=== PATIENT | female | born 1955 | race Caucasian/White ===

== ENCOUNTER 2020-02-05 11:34 | Outpatient (CLI) | payer MEDICARE, SELFPAY ==
--- NOTE | ~2020-02-05 | XR_ITS ---
EXAMINATION: XR abdomen/kub 1V INDICATION: Left-sided calcium kidney stone TECHNIQUE: Supine views of the abdomen were obtained on 2 radiographs. COMPARISON: None FINDINGS: Enteric contrast from an unknown examination partially opacifies the large bowel and limits visualization of the kidneys. A 2.3 cm stone projects in the left kidney. There are changes of left hip arthroplasty. Advanced osteoarthritis is noted in the right hip. There is at least moderate lower lumbar spondylosis. IMPRESSION: 1. 2.3 cm stone projecting in the left kidney. Reviewed, dictated and finalized at location A.
== END 2020-02-05 11:35 | disposition home or self-care (01) ==
PROVIDERS: Visit Provider Urology
DX: N20.0 Calculus of kidney (principal)
CPT/HCPCS: 74018

== ENCOUNTER 2020-06-09 09:15 | Outpatient (CLI) | payer MEDICARE, SELFPAY ==
--- NOTE | ~2020-06-09 | XR_ITS ---
XR abdomen/kub 1V 06/09/2020 09:41 Indication: Renal stones Procedure: KUB Comparison: 02/05/2020 Findings: Bowel gas pattern is nonobstructive. There is a 2.5 x 1.7 cm left renal stone. Other coloni c fecal loading. There are pelvic phleboliths. There is a radiodensity in the right abdomen, consiste nt with bowel content. Moderate lumbar spondylosis with levoscoliosis. There is a left total hip arth roplasty. There is advanced osteoarthritis of the right hip Impression: 1: Large left renal stone measuring up to 2.5 cm. Reviewed, dictated and finalized at location A. ORTHOPAEDICS Impression: 1: Large left renal stone measuring up to 2.5 cm.
== END 2020-06-09 09:16 | disposition home or self-care (01) ==
LOC: ANHIMG 09:25
PROVIDERS: PCP Internal Medicine; Visit Provider Urology
DX: N20.0 Calculus of kidney (principal)
CPT/HCPCS: 74018

== ENCOUNTER 2020-09-14 11:29 | Outpatient (CLI) | payer MEDICARE, SELFPAY ==
--- NOTE | ~2020-09-14 | XR_ITS ---
XR abdomen/kub 1V DATE: 09/14/2020 11:50 INDICATION: Calcium kidney stone follow-up TECHNIQUE: AP projection, 2 views COMPARISON: 06/09/2020 KUB FINDINGS: Large left calcified stone overlying left renal pelvis on 06/09/2020 is no longer evident. No obvious urinary tract calcification is noted. Noncontrast CT abdomen pelvis examination would be mor e sensitive and accurate for detection of kidney stones. Abdominal aortic calcification. No evidence of bowel obstruction. The psoas shadows are intact. No visceromegaly is detected. Severe osteoarthritis of the right hip joint. Left total hip arthroplasty. Levoscoliosis and degenerative disc disease of the lumbar and upper sacral spine. Osteopenia. IMPRESSION: Resolution of previous large calcified left renal pelvic stone since 06/09/2020 Severe right hip osteoarthritic arthritis Status post left total hip arthroplasty Reviewed, dictated and finalized at Location A. Reviewed, dictated and finalized at location A. IMPRESSION: Resolution of previous large calcified left renal pelvic stone sinc e 06/09/2020 Severe right hip osteoarthritic arthritis Status post left total hip arthroplasty
== END 2020-09-14 11:30 | disposition home or self-care (01) ==
PROVIDERS: PCP Internal Medicine; Visit Provider Urology
DX: N20.0 Calculus of kidney (principal)
CPT/HCPCS: 74018

== ENCOUNTER 2021-02-01 10:27 | Outpatient (CLI) | payer MEDICARE, SELFPAY ==
--- NOTE | ~2021-02-01 | XR_ITS ---
EXAMINATION: XR abdomen/kub 1V INDICATION: History of kidney stones TECHNIQUE: Supine views of the abdomen were obtained on 2 radiographs. COMPARISON: 09/14/2020 FINDINGS: No urolithiasis is identified. There is lumbar levocurvature. The bowel gas pattern is norm al. Multiple phleboliths are noted in the pelvis. There are changes of left hip arthroplasty. Advance d right hip osteoarthritis is noted. The visualized lung bases are clear. There is calcified atherosc lerosis. IMPRESSION: 1. No urolithiasis identified. Reviewed, dictated and finalized at location A.
== END 2021-02-01 10:28 | disposition home or self-care (01) ==
LOC: ANHIMG 10:33
PROVIDERS: PCP Internal Medicine; Visit Provider Urology
DX: N20.0 Calculus of kidney (principal)
CPT/HCPCS: 74018

== ENCOUNTER → 2021-06-25 09:12 | Outpatient (CLI) | payer MEDICARE, SELFPAY ==
[2021-06-25 20:22] LABS: SARS-CoV-2 RNA PCR Negative
== END ==
PROVIDERS: PCP Internal Medicine; Visit Provider Internal Medicine
DX: J06.9 Acute upper respiratory infection, unspecified (principal); Z20.822 Contact with and (suspected) exposure to COVID-19
CPT/HCPCS: C9803; U0003; U0005

== ENCOUNTER 2022-01-24 09:54 | Outpatient (CLI) | payer MEDICARE, SELFPAY ==
--- NOTE | ~2022-01-24 | XR_ITS ---
EXAMINATION: XR abdomen/kub 1V INDICATION: Calcium kidney stone TECHNIQUE: Supine views of the abdomen were obtained on 2 radiographs. COMPARISON: 02/01/2021 FINDINGS: A 3 mm stone projects in the upper pole of the left kidney. No additional urolithiasis is i dentified. There are phleboliths of the pelvis. Changes of bilateral hip arthroplasty are noted. The visualized lung bases are clear. A moderate volume of colonic stool is present. IMPRESSION: 1. Left nephrolithiasis. Reviewed, dictated and finalized at location B. IMPRESSION: 1. Left nephrolithiasis.
== END 2022-01-24 09:55 | disposition home or self-care (01) ==
PROVIDERS: PCP Internal Medicine; Visit Provider Urology
DX: N20.0 Calculus of kidney (principal)
CPT/HCPCS: 74018

== ENCOUNTER 2022-01-27 00:29 | Day surgery (SDC) | payer MEDICARE, SELFPAY ==
[2022-01-11 15:03] VITALS: BMI 28.3
--- NOTE | 2022-01-26 16:22 | PM.HPGS ---
History of Present Illness History of Present Illness Consent: Risks, benefits, and alternatives have been discussed and questions answered. Patient agrees to proceed with procedure. Chief complaint: neoplasm screening Narrative: Tiara Heaton is a 66 year old female referred for colon cancer screening. Review of Systems Review of Systems: All systems reviewed & are unremarkable except as noted in HPI and below PMFSH Social History Social History Living arrangements: with family Spiritual care concerns: No Meds Home Medications and Allergies Home Medications Medication Instructions Recorded Confirmed Type guaifenesin 600 mg tablet, 600 mg PO DAILY 01/11/22 01/27/22 History extended release 12 hr (Mucinex) meloxicam 15 mg tablet 15 mg PO DAILY PRN Pain 01/11/22 01/27/22 History omeprazole 20 mg capsule,delayed 20 mg PO DAILY PRN Acid Reflux 01/11/22 01/27/22 History release simvastatin 40 mg tablet 40 mg PO DAILY 01/11/22 01/27/22 History Allergies Allergy/AdvReac Type Severity Reaction Status Date / Time Penicillins Allergy Severe rash/hives Verified 01/27/22 06:50 Sulfa (Sulfonamide Allergy Severe rash/hives Verified 01/27/22 06:50 Antibiotics) celecoxib Allergy Rash Verified 01/27/22 06:50 nitrofurantoin Allergy Nausea and Verified 01/27/22 06:50 [From Macrobid] Vomiting Exam Resp: Auscultation: clear to auscultation bilaterally Cardio: Rate: regular rate Rhythm: regular rhythm GI: GI Palp: Yes Soft to palpation and No Tenderness to palpation present (GI) Assessment and Plan Assessment and plan (1) Colon cancer screening: Code(s): Z12.11 - Encounter for screening for malignant neoplasm of colon Status: Acute Assessment and Plan: Colonoscopy with possible biopsy or polypectomy or cautery or injection of substances.
[2022-01-27 06:51] VITALS: BP 124/62; PULSE 60; RESP 17; TEMP 36.4; O2SAT 99; BMI 28.9
[2022-01-27] MEDS: LACTATED RINGERS 1,000 ML 150 ML IV CONT (07:04)
--- NOTE | 2022-01-27 07:30 | P.PNAN_ITS ---
Anes - Initial Pre Proc Eval Procedure: Operation Date: 01/27/22 08:00 Proposed Procedures p Screening Colonoscopy - Blake Peoples MD Date/Time: 01/27/22 07:30 Surgeon: Blake Peoples MD Pre Op Diagnosis: neoplasm screening Patient Data Age: 66 Gender: F Height: 1.63 m Weight: 76.5 kg Last Vital Signs Temp 97.6 F 01/27/22 06:51 Pulse 60 01/27/22 06:51 Resp 17 01/27/22 06:51 BP 124/62 01/27/22 06:51 Pulse Ox 99 01/27/22 06:51 O2 Del Method Room Air 01/27/22 06:51 Allergies Allergy/AdvReac Type Severity Reaction Status Date / Time Penicillins Allergy Severe rash/hives Verified 01/27/22 06:50 Sulfa (Sulfonamide Allergy Severe rash/hives Verified 01/27/22 06:50 Antibiotics) celecoxib Allergy Rash Verified 01/27/22 06:50 nitrofurantoin Allergy Nausea and Verified 01/27/22 06:50 [From Macrobid] Vomiting Home Medications Medication Instructions Recorded Confirmed Type guaifenesin 600 mg tablet, 600 mg PO DAILY 01/11/22 01/27/22 History extended release 12 hr (Mucinex) meloxicam 15 mg tablet 15 mg PO DAILY PRN Pain 01/11/22 01/27/22 History omeprazole 20 mg capsule,delayed 20 mg PO DAILY PRN Acid Reflux 01/11/22 01/27/22 History release simvastatin 40 mg tablet 40 mg PO DAILY 01/11/22 01/27/22 History Patient hx anesthesia problems: none Family hx anesthesia problems: none Results Review: All pre-operative results and documents have been reviewed as part of the pre- operative evaluation. [facility] Social History Social History Living arrangements: with family Spiritual care concerns: No Anes - Eval Final PreProcedure Day of Procedure 01/27/22 07:30 Patient weight: overweight Heart: irregular rhythm Lungs: clear to auscultation Airway: Mallampati scale class II Neurological: alert and oriented Last oral intake: >/= 8 hours ASA classification: III Emergent: no Anesthetic plan: proceed Anesthesia type and monitoring: general GIVS and standard monitoring Results Review: All pre-operative results and documents have been reviewed as part of the pre- operative evaluation. Informed Consent: The patient's anesthetic plan and its attendant risks and benefits were discussed with the patient/family/POA. Questions were solicited and answers provided to the satisfaction of the patient/family/POA.
[2022-01-27 08:11] VITALS: BP 92/53; PULSE 65; RESP 18; O2SAT 99
[2022-01-27 08:21] VITALS: BP 99/59; PULSE 60; RESP 20; O2SAT 100
--- NOTE | 2022-01-27 08:29 | SUR.PHASEII ---
0811: PER ELDA, MANAGER EDUCATIONAL PT RAN RIGHT BUNDLE BRANCH BLOCK THROUGHOUT CASE, PT CONTINUES TO RUN BUNDLE BRANCH BLOCK WITH NO CONCERNS. DR SARABIA AWARE. NO NEW ORDERS.
[2022-01-27 08:31] VITALS: BP 110/68; PULSE 55; RESP 18; O2SAT 99
== END 2022-01-27 08:44 | disposition home or self-care (01) ==
PROVIDERS: PCP Internal Medicine; Visit Provider Internal Medicine Gastroenterology
PROC: 0DJD8ZZ Inspection of Lower Intestinal Tract, Via Natural or Artificial Opening Endoscopic (ICD-10-PCS; CPT 45378; principal; 2022-01-27 08:00)
DX: Z12.11 Encounter for screening for malignant neoplasm of colon (principal); D12.2 Benign neoplasm of ascending colon; K64.8 Other hemorrhoids; K57.30 Diverticulosis of large intestine without perforation or abscess without bleeding
CPT/HCPCS: 45380; 88305; J2704; J3370; J7120

== ENCOUNTER 2022-06-08 11:29 | Outpatient (CLI) | payer MEDICARE, SELFPAY ==
--- NOTE | ~2022-06-08 | XR_ITS ---
XR abdomen/kub 1V 06/08/2022 11:49 Indication: Left renal stone Procedure: KUB Comparison: Comparison to multiple prior studies sequentially, with oldest reviewed study dated 11/2020. Findings: Stable or millimeter left renal stone. Bowel gas pattern nonobstructive with moderate colon ic fecal loading. There is severe lumbar spondylosis with levoscoliosis. There are bilateral hip arth roplasties. There are pelvic phleboliths. Impression: 1: Stable left nephrolithiasis. Reviewed, dictated and finalized at location A. OMER ACQUISITION SPECIALIST Impression: 1: Stable left nephrolithiasis.
== END 2022-06-08 11:30 | disposition home or self-care (01) ==
LOC: ANHIMG 11:34
PROVIDERS: PCP Internal Medicine; Visit Provider Urology
DX: N20.0 Calculus of kidney (principal)
CPT/HCPCS: 74018

== ENCOUNTER 2023-06-11 11:50 | Outpatient (CLI) | payer MEDICARE, SELFPAY ==
--- NOTE | ~2023-06-11 | XR_ITS ---
XR abdomen/kub 1V DATE: 06/11/2023 12:12 INDICATION: Left calcium kidney stone follow-up TECHNIQUE: 2 supine AP views of the abdomen and pelvis COMPARISON: 06/08/2022 KUB 01/24/2022 KUB 02/03/2020 CT abdomen pelvis FINDINGS: No significant change of approximately 4 mm lower pole nonobstructing left renal calculus s petty 06/08/2022. The psoas shadows are intact. No visceromegaly is evident. There is a prominent amount of fecal mater ial in the rectum and colon but no bowel obstruction. Calcification and tortuosity of the abdominal aorta. IMPRESSION: Stable approximately 4 mm lower pole left renal calcified calculus Reviewed, dictated and finalized at Location A. Reviewed, dictated and finalized at location B. [employer] ENG[employer]ER[employer]
== END 2023-06-11 11:51 | disposition home or self-care (01) ==
PROVIDERS: PCP Internal Medicine; Visit Provider Urology
DX: N20.0 Calculus of kidney (principal)
CPT/HCPCS: 74018

== ENCOUNTER 2024-07-18 11:31 | Outpatient (CLI) | payer MEDICARE, SELFPAY ==
--- NOTE | ~2024-07-18 | XR_ITS ---
Exam: Abdomen 1V HISTORY: NEPHROLITHIASIS, ANNUAL F/U COMPARISON: Examination was compared with multiple prior studies performed most recently on 06/11/2023 and dating back to 01/24/2022 TECHNIQUE: Supine images of the abdomen FINDINGS: Fecal stasis within the colon. No obstruction. There is no free air or deep sulci. Stable 4 mm calculus projecting over the lower pole of the left kidney, unchanged dating back to 01/24 Bilateral hip prostheses IMPRESSION: Stable 4 mm calculus projecting over the lower pole of the left kidney, as detailed above. Reviewed, dictated and finalized at location A. ROAD SIGNAL OPERATOR IMPRESSION: Stable 4 mm calculus projecting over the lower pole of the left kidney, as detmarybeth edmondson above.
--- OUTSIDE RECORDS SUMMARY | 2024-07-18 11:41 | XMS_ITS | Patient Health Record ---
Author Organization [facility] Address [address] [place] [address] Care Team Providers Care Scrap Cutter Name Role Phone Colin PIZARRO, Randi Primary Care Provider Un available FLORENCE PIZARRO, NIKI Unavailable REASON FOR REFERRAL No Information PLAN OF TREATMENT Pending Test Test Name Order Date CT ABDOMEN W CONTRAST 06/01/2020 Endoscopic Retrograde Cholangiopancreato graphy (ERCP) 06/11/2020 Endoscopic Retrograde Cholangiopancreato graphy (ERCP) 04/20/2020 Endoscopic Retrograde Cholangiopancreato graphy (ERCP) 09/03/2020 MRCP 08/13/2020 Insurance Providers Payer Name Payer Address Payer Phone Subscriber Number Group Number Insured Name Patient Relationship to Insured Coverage Start Date Coverage End Date Medicare-M O Medicare [address] [address] [place], [place] [id number] Tiara Heaton Self - patient is the insured [facility] Medicare Supplement [address] [facility] [place], [place] [id number] Tiara Heaton Self - patient is the insured
--- OUTSIDE RECORDS SUMMARY | 2024-07-18 11:41 | XMS_ITS | Clinical Summary ---
Author Organization [facility] Address [address] [place] [address] Phone Care Team Providers Care Education And Training Coordinator Name Role Phone Randi Shaw MD Primary Care Provider [phone] Allergies Active Allergy Reactions Criticality Noted Date Comments Celecoxib Rash High 02/13/2011 Nitrofurantoin nausea,Nausea And Vomiting,Vomiting High 08/10/2020 Penicillins Rash High 02/13/2011 1997 Sulfa Antibiotics Rash High 03/15/2011 Medications Medication Sig Dispensed Refills Start Date End Date Status simvastatin (ZOCOR) 40 MG tablet Take 40 mg by mouth 1 (one) time each day 04/04/2022 Active Probiotic Product (Align) capsule Take 4 mg by mouth every other day Active guaiFENesin (MUCINEX) 600 MG 12 hr tablet Take 600 mg by mouth once daily as needed Active omeprazole (PriLOSEC) [address] capsule Take 20 mg by mouth once daily as needed Active cholecalciferol (VITAMIN D-3) 25 MCG (1000 UT) capsule Take 1,000 Units by mouth 1 (one) time each day Active hydroCHLOROthiazide 12.5 MG tablet TAKE 1 TABLET(12.5 MG) BY MOUTH 1 TIME EACH DAY 90 tablet 3 04/15/2024 Active Encounters Date Type Department Care Team Description 06/30/2024 Orders Only [facility] [address] [place] [address] Zuleika Rankin MA Nephrolithiasis (Primary Dx) 05/09/2024 Orders Only [facility] [address] [place] [address] Jamie Armendariz MD Nephrolithiasis (Primary Dx) from Last 3 Months Immunizations Name Administration Dates Next Due Influenza Split High Dose Preservative Free IM 03/20/2017 Influenza TIV (IM) 04/13/2020,02/14/2019 Influenza, Injectable, Quadr ivalent, Preservative Free 02/13/2019 Influenza, Unspecified 03/23/2023,2021,03/16/2021,2019,04/24/2018 Moderna Sars-cov-2 Vaccination 08/25/2020 Pfizer Sars-cov-2 Vaccination 04/06/2022, 022,07/30/2020 Pneumococcal Conjugate 05/04/2019 Pneumococcal Conjugate 13-Valent 04/29/2018 Social History Tobacco Use Types Packs/Day Years Used Date Smoking Tobacco: Unknown Tobacco Cessation:Counseling Given: Not Answered Sex and Gender Information Value Date Recorded Sex Assigned at Not on file Gender Identity Not on file Sexual Orientation Not on file Last Filed Vital Signs Vital Sign Reading Time Taken Comments Blood Pressure 122/70 07/30/2023 2:07 PM CAMPAIGN SPECIALIST Pulse 56 07/30/2023 2:07 PM CAMPAIGN SPECIALIST Temperature - - Respiratory Rate - - Oxygen Saturation - - Inhaled Oxygen Concentration - - Weight 77.6 kg (171 lb) 07/30/2023 2:07 PM CAMPAIGN SPECIALIST Height 160 cm (5' 3 ) 07/30/2023 2:07 PM CAMPAIGN SPECIALIST Body Mass Index 30.29 07/30/2023 2:07 PM CAMPAIGN SPECIALIST Plan of Treatment Upcoming Encounters Date Type Department Care Team (Late st Contact Info) Description 08/12/2024 11:40 AM CDT Office Visit [facility] [address] [place] [address] Jamie Armendariz MD [address] [place] [address] Health Maintenance Due Date Last Done Comments Pneumococcal PPSV23/PCV13 65 + Years / High and Highest Risk (2 of 4 - PPSV23 or PCV20) 06/24/2018 04/29/2018 COVID-19 Vaccine (6 - 2023-2 5 season) 2024 04/06/2022, 10/10/2021, 08/25/2020, Additional history exists Influenza Vaccine (#1) 2024 3, 03/16/2022, 03/16/2021, Additional history exists Procedures Procedure Name Priority Date/Time Associated Diagnosis Comments LITHOLINK 24-HOUR URINE, [place] Routine 07/11/2024 6:00 AM CAMPAIGN SPECIALIST Nephrolithiasis from Last 3 Months Results * (ABNORMAL) Litholink 24-Hour Urine Panel (07/11/2024 6:00 AM CAMPAIGN SPECIALIST) CYSTINE, URINE, QUALITATIVE CANCELED [facility] 1 Comment: Test not performed. Previous test results on file. Result canceled by the ancillary. Volume, 24-Hour Urine 3,660 500 - 4,000 mL/24 hr [facility] 1 Calcium oxalate index, 24 hour Urine 1.99(L) 6.00 - 10.00 [facility] 1 Calcium, 24 hour Urine 191 <200 mg/24 hr [facility] 1 Oxalate, 24 hour Urine 22 20 - 40 mg/24 hr [facility] 1 Citrate, 24 hour Urine 904 >550 mg/24 hr [facility] 1 CALCIUM PHOSPHATE SATURATION 0.81 0.50 - 2.00 [facility] 1 pH of 24 hour Urine 6.959(H) 5.800 - 6.200 [facility] 1 Urate, 24 hour Urine 0.04 <1.00 [facility] 1 Uric Acid (Urate), 24 Hour Urine 534 <750 mg/24 hr [facility] 1 Sodium, 24 hour Urine 158(H) 50 - 150 mmol/24 hr [facility] 1 Potassium, 24 hour Urine 53 20 - 100 mmol/24 hr [facility] 1 Magnesium, 24 hour Urine 90 30 - 120 mg/24 hr [facility] 1 Phosphate, 24 hour Urine 586(L) 600 - 1,200 mg/24 hr [facility] 1 AMMONIUM, URINE 26 15 - 60 mmol/24 hr [facility] 1 Chloride, 24 hour Urine 154 70 - 250 mmol/24 hr [facility] 1 Sulfate, 24 hour Urine 21 20 - 80 meq/24 hr [facility] 1 Urea nitrogen, 24 hour Urine (UUN) 6.93 6.00 - 14.00 g/24 hr [facility] 1 PROTEIN CATABOLIC RATE 0.8 0.8 - 1.4 g/kg/24 hr [facility] 1 Creatinine, 24 hour Urine 1,115 Not Applic. mg/24 hr [facility] 1 CREATININE / KG BODY WEIGHT 14.9 8.7 - 20.3 mg/24 hr/kg [facility] 1 Calcium/Kg Body Weight 2.6 <4.0 mg/24 hr/kg [facility] 1 RATIO CALCIUM TO CREATININE UA 172 51 - 262 mg/g creat [facility] 1 COMMENT Note [facility] 1 PDF . [facility] 1 07/11/2024 6:00 AM CAMPAIGN SPECIALIST 07/15/2024 11:00 PM CAMPAIGN SPECIALIST Narrative [facility] - 07/17/2024 2:06 AM CAMPAIGN SPECIALIST Performed at: 01 - [facility] [address] [id number] Jewel Hole Cornerer: Bettie Lawler PhD, Phone: [phone] Jamie Armendariz MD LAB URINE ORDERABLES Performing Organization Address City/State/[facility] Co de Phone Number [facility] 1 from Last 3 Months Care Teams Education And Training Coordinator Relationship Specialty Start Date End Date Randi Shaw MD [facility] [place] [address] PCP - General Family Medicine 05/17/22
--- OUTSIDE RECORDS SUMMARY | 2024-07-18 11:41 | XMS_ITS | Encounter Summary ---
Author Organization [facility] Address [address] [place] [address] Care Team Providers Care Physician/Internist Name Role Phone Lyudmila Shaw MD Primary Care Provide r Yrn Bashir MD Unavailable [phone] Sherly De Jesus MD Unavailable [phone] Encounter Details Date Type Department Care Team (Late st Contact Info) Description 07/19/2020 Telephone [facility] - Interventional Radiology [address] [place] [address] Geena Hernadez RN Social History Tobacco Use Types Packs/Day Years Used Date Smoking Tobacco: Never Smokeless Tobacco: Never Alcohol Use Standard Drinks/Week Comments Not Currently 0 (1 standard drink = 0.6 oz pur e alcohol) Social Connection and Isolation Panel [NHANES] A nswer Date Recorded Frequency of Communication with Friends and Fami ly Not on file 11/12/2019 Frequency of Social Gatherings with Friends and Family Not on file 11/12/2019 Attends Latter Day Services Not on file 11/11 Active Member of Clubs or Organizations Not on f ile 11/12/2019 Attends Club or Organization Meetings Not on sana e 11/12/2019 Are you , , di vorced, , never , or living with a partner? 11/12/2019 Exercise Vital Sign Answer Date Recorde d On average, how many days pe r week do you engage in moderate to strenuous exercise (like a brisk walk)? 0 days 11/12/2019 On average, how many minutes do you engage in exercise at this level? 0 min 11/12/2019 Comments No Sex and Gender Information Value Date Recorded Sex Assigned at Not on file Legal Sex Female 3:46 AM HELP DESK INTERN Gender Identity Female 09/04/2020 8:26 AM CDT Sexual Orientation Not on file documented as of this encounter Plan of Treatment Not on file documented as of this encounter Visit Diagnoses Not on filedocumented in this encounter Care Teams Physician/Internist Relationship Specialty Start Date End Date Lyudmila Shaw MD [address] [facility] [address] [place] [address] PCP - General 06/17/18 Yrn Bashir MD [address] [facility] [address] [place] [address] Consulting Physician Gastroenterology 04/15/20 Sherly De Jesus MD [address] [facility] [address] [place] [address] Consulting Physician Urology 04/15/20 documented as of this encounter
--- OUTSIDE RECORDS SUMMARY | 2024-07-18 11:41 | XMS_ITS | Clinical Summary ---
Author Organization [facility] Address [address] [place] [address] Care Team Providers Care Doughmaker Name Role Phone Pancho Hatfield MD Unavailable [phone] Enedelia LAMBERT MD, Frank Unavailable [phone] Source Comments [facility],non-owned Affiliates and Associated Physician Practices is amultiple site organization consisting of ambulatory clinics and hospital sitesin [place], [place], [place] and [place]. This disclosure is being madepursuant to the Care Everywhere program and may not contain all information available regarding this patient. Last updated 18.[facility] Allergies Active Allergy Reactions Criticality Noted Date Comments Celecoxib Rash Medium 03/15/2011 Nitrofurantoin Nausea and/or Vomiting 1 Penicillins Rash Low 03/15/2011 Sulfa Drugs Rash Low 03/15/2011 Medications * Be aware that medications may not be up to date on this document. Alwaysverify current medications with the patient. Medication Sig Dispensed Refills Start Date End Date Status calcium-vitamin D (CALTRATE PLUS D) 600-200 MG-UNIT tablet Take 1 Tab by mouth 2 times daily. Active multivitamin daily (THERAGRAN) tablet Take 1 Tab by mouth daily with food. Active Probiotic Product (ALIGN PO) Take by mouth every 2 days Active clindamycin (CLEOCIN) 300 MG capsuleIndications: Status post total replacement of left hip Take 2 capsules by mouth once as needed (Dental Prophylaxis) 2 tablets one hour before dental work. 6 capsule 04/01/2019 Active Additional Information Patient not taking.Reported on 03/31/2021 simvastatin (ZOCOR) 40 MG tablet Take 40 mg by mouth at bedtime Active omeprazole (PRILOSEC) 20 MG capsule Take 20 mg by mouth once daily as needed Active guaiFENesin ER 12hr (MUCINEX) 600 MG tablet Take 600 mg by mouth once daily as needed for Cough Active docusate sodium (COLACE) 100 MG capsule Take 100 mg by mouth once daily as needed for Constipation Active HYDROcodone-acetami nophen (NORCO) 10-325 MG tablet Take 0.5 (one-half) tablet to 1 (one) tablet by mouth every 6 hours as needed for Pain 28 tablet 04/02/2021 Active meloxicam (MOBIC) 15 MG tablet TAKE 1 TABLET BY MOUTH EVERY DAY 21 tablet 05/16/2021 Active Active Problems Problem Noted Date Diagnosed Date Arthralgia of hip 02/11/2019 Knee joint replacement by other means 11/16/2011 DJD (degenerative joint disease) 10/26/2011 Immunizations Name Administration Dates Next Due INFLUENZA VACCINE, QUADR. (F LUZONE; FLULAVAL; FLUARIX; AFLURIA QUADRIVALENT; 6MO+), 0.5 ML (IIV4) 02/13/2019 Social History Tobacco Use Types Packs/Day Years Used Date Smoking Tobacco: Never Smokeless Tobacco: Never Alcohol Use Standard Drinks/Week Comments No 0 (1 standard drink = 0.6 oz pur e alcohol) Sex and Gender Information Value Date Recorded Sex Assigned at Female 06/13/2021 9:49 AM POWER PLANT ENGINEER Gender Identity Female 06/13/2021 9:49 AM POWER PLANT ENGINEER Sexual Orientation Not on file Last Filed Vital Signs Vital Sign Reading Time Taken Comments Blood Pressure 110/67 04/02/2021 11:[address] tx Pulse 53 04/02/2021 8:05 AM CDT Temperature 36.5 C (97.7 F) 04/02/2021 8:05 AM CDT Respiratory Rate 18 04/02/2021 8:05 AM CDT Oxygen Saturation 96% 04/02/2021 8:05 AM CDT Inhaled Oxygen Concentration - - Weight 73.9 kg (163 lb) 03/31/2021 7:41 AM CDT Height 162.6 cm (5' 4 ) 03/31/2021 7:41 AM CDT Body Mass Index 27.98 03/31/2021 7:41 AM CDT Plan of Treatment Health Maintenance Due Date Last Done Comments BONE DENSITY TESTING 1953 COLOGUARD (AGES 45-75) - COLON CA SCREENING 1953 COLON MONITORING 1953 COLONOSCOPY - COLON CA SCREENING 1953 CT COLONOGRAPHY - COLON CA SCREENING 1953 Colorectal Cancer Screening 1953 FIT - COLON CA SCREENING 1953 FLEX SIG - COLON CA SCREENING 1953 MAMMOGRAM 1953 MEDICARE AWV 12 MONTHS 1953 HEPATITIS C SCREENING 02/11/1971 DTAP/TDAP/TD VACCINES (1 - Tdap) 02/16/1972 PNEUMOCOCCAL VACCINE 50+ (1 of 1 - PCV) 2003 ZOSTER VACCINE (1 of 2) 2003 SCREENING FOR DIABETES 01/17/2022 9, 09/20/2011, 03/15/2011 COVID-19 VACCINE (3 - season) 2024 08/25/2020, 07/30/2020 INFLUENZA VACCINE (#1) 2024 , 02/14/2019, 02/13/2019, Additional history exists DEPRESSION SCREENING 06/04/2024 Respiratory Syncytial Virus (RSV) Vaccine Pt: or over 60 yrs (1 - 1-dose 75+ series) 02/16/2028 HEPATITIS B VACCINE Aged Out No longe r eligible based on patient's age to complete this topic HIB VACCINE Aged Out No longer eligi ble based on patient's age to complete this topic HPV VACCINE Aged Out No longer eligi ble based on patient's age to complete this topic MENINGOCOCCAL (Group B) VACCINE Aged Out No longer eligible based on patient's age to complete this topic MENINGOCOCCAL VACCINE Aged Out No cassidy alyson eligible based on patient's age to complete this topic Medical Devices Implanted Type Area Cook Italian Style Food Device Identifier Shelf Expiration Date Model / Serial / Lot Liner Actb Mxrm +3mm 23 36mm E-Poly Hip Implanted:Qty: 1 on 02/11/2019 by Emmanuel Mcdaniels IV, MD at [facility] Left: Hip [employer] 07/13/2023 [id number] / / [id number] Shell Actb 52mm Hip Lmt Hl Rnglc+ Implanted:Qty: 1 on 02/11/2019 by Emmanuel Mcdaniels IV, MD at [facility] Left: Hip [employer] 10/28/2027 [id number] / / [id number] Stem Offset Uncemented 4 Taper Implanted:Qty: 1 on 02/11/2019 by Emmanuel Mcdaniels IV, MD at [facility] Left: Hip 09/02/2023 [id number] / / [id number] Ceramic Femoral Head Implanted:Qty: 1 on 02/11/2019 by Emmanuel Mcdaniels IV, MD at [facility] Left: Hip 10/01/2028 [id number] / / [id number] Ursula Stem Implanted:Qty: 1 on 03/31/2021 by Emmanuel Mcdaniels IV, MD at [facility] Right: Hip 08/03/2027 [id number] / / [id number] Acetabular Shell Implanted:Qty: 1 on 03/31/2021 by Emmanuel Mcdaniels IV, MD at [facility] Right: Hip 09/20/2030 [id number] / / [id number] Linr Actb 45d 7mm Ofst Ii 52mm 36mm Implanted:Qty: 1 on 03/31/2021 by Emmanuel Mcdaniels IV, MD at [facility] Right: Hip [employer] 08/03/2025 [id number] / / [id number] Bone Screw Implanted:Qty: 1 on 03/31/2021 by Emmanuel Mcdaniels IV, MD at [facility] Right: Hip 01/21/2031 / / [id number] Head Fem +0mm 12/14 Tpr 36mm Hip Oxnm Implanted:Qty: 1 on 03/31/2021 by Emmanuel Mcdaniels IV, MD at [facility] Right: Hip [employer] 01/29/2031 [id number] / / [id number] Explanted Type Area Cook Italian Style Food Device Identifier Shelf Expiration Date Model / Serial / Lot Pin Hlf 255mm 5mm Jtx Lng Orth Ss 45mm Explanted:Qty: 1 on 03/31/2021 by Emmanuel Mcdaniels IV, MD at [facility] Right: Hip [employer] [id number] / / Procedures Procedure Name Priority Date/Time Associated Diagnosis Comments COMPREHENSIVE METABOLIC PANEL Routine 01/17/2019 10:21 AM CDT Preop examination from Last 3 Months or Most Recently Relevant to Health Maintenance Results * (ABNORMAL) COMPREHENSIVE METABOLIC PANEL (01/17/2019 10:21 AM CDT) Glucose 103 74 - 106 mg/dL 01/17/2019 10:59 AM CDT [facility] Sodium 141 136 - 145 mmol/L 01/17/2019 10:59 AM CDT [facility] Potassium 3.9 3.5 - 5.1 mmol/L 01/17/2019 10:59 AM CDT [facility] Chloride 104 98 - 107 mmol/L 01/17/2019 10:59 AM CDT [facility] CO2 29 23 - 31 mmol/L 01/17/2019 10:59 AM CDT [facility] Calcium 10.1 8.4 - 10.2 mg/dL 01/17/2019 10:59 AM CDT [facility] Anion Gap 8 8 - 16 mmol/L 01/17/2019 10:59 AM CDT [facility] BUN 13 9.8 - 20.1 mg/dL 01/17/2019 10:59 AM CDT [facility] Creatinine 0.78 0.55 - 1.02 mg/dL 01/17/2019 10:59 AM CDT [facility] Alkaline Phosphatase 93 40 - 150 U/L 01/17/2019 10:59 AM CDT [facility] ALT 11(L) 13 - 61 U/L 01/17/2019 10:59 AM CDT [facility] AST 15 5 - 34 U/L 01/17/2019 10:59 AM CDT [facility] Protein Total 7.1 6.4 - 8.3 gm/dL 01/17/2019 10:59 AM CDT [facility] Albumin 4.2 3.2 - 4.6 gm/dL 01/17/2019 10:59 AM CDT [facility] Bilirubin Total 0.5 0.2 - 1.0 mg/dL 01/17/2019 10:59 AM CDT [facility] eGFR by MDRD >60 >60 mL/min/1.7 3m2 01/17/2019 10:59 AM CDT [facility] eGFR by MDRD >60 >60 mL/min/1.7 3m2 01/17/2019 10:59 AM CDT [facility] Blood BLOOD SPECIMEN / Unknown Venipuncture / Unknown 01/17/2019 10:21 AM CDT 01/17/2019 10:30 AM CDT Shirin Canales CHIEF METEOROLOGIST-PROTOTYPE ENGINEER LAB - CHEM ISTRY ORDERABLES [facility] [address] [place] [address] from Last 3 Months or Most Recently Relevant to Health Maintenance Advance Directives * Full Code (Latest Code Status on File) Date Activated Date Inactivated Comments 03/31/2021 11:08 AM 04/02/2021 2:39 PM * Full Code Date Activated Date Inactivated Comments 02/11/2019 12:20 PM 02/14/2019 3:28 PM * FULL RESUSCITATION Date Activated Date Inactivated Comments 10/26/2011 1:51 PM 10/29/2011 11:42 PM * FULL RESUSCITATION Date Activated Date Inactivated Comments 04/13/2011 2:36 PM 04/16/2011 11:38 PM Care Teams Doughmaker Relationship Specialty Start Date End Date Pancho Hatfield MD Orthopedic Surgery 05/03/11 [place] [id number] [address] Orthopedic Surgery 01/06/19
--- OUTSIDE RECORDS SUMMARY | 2024-07-18 11:41 | XMS_ITS | Encounter Summary ---
Author Organization [facility] [employer] [facility] Address [address] [place] [address] Phone Care Team Providers Care Mortgage Branch Manager Name Role Phone Roxanne Somers NP Primary Care Provider [phone] Lyudmila Shaw MD Primary Care Provide r Yrn Bashir MD Unavailable [phone] Sherly De Jesus MD Unavailable Encounter Details Date Type Department Care Team (Latest Contact Info) Description 05/11/2017 Orders Only [facility] CONVERSION Scanning, Provider Social History Tobacco Use Types Packs/Day Years Used Date Smoking Tobacco: Never Comments Unknown Sex and Gender Information Value Date Recorded Sex Assigned at Not on file Legal Sex Female 3:[address] COUNSELLOR Gender Identity Female 09/04/2020 8:26 AM CDT Sexual Orientation Not on file documented as of this encounter Plan of Treatment Not on file documented as of this encounter Procedures Procedure Name Priority Date/Time Associated Diagnosis Comments OBSTETRIC/GYNECOLOGY ULTRASONOGRAPHY REPORT 05/11/2017 1:[address] COUNSELLOR documented in this encounter Results * OBSTETRIC/GYNECOLOGY ULTRASONOGRAPHY REPORT (05/11/2017 1:[address] COUNSELLOR) Anatomical Region Laterality Modality Ultrasound us Provider Scanning IMG OB US PROCEDURES Final Res ult documented in this encounter Visit Diagnoses Not on filedocumented in this encounter Care Teams Mortgage Branch Manager Relationship Specialty Start Date End Date Roxanne Somers NP PCP - General 08/18/16 06/16/18 Lyudmila Shaw MD [address] [facility] [address] [place] [address] PCP - General 06/17/18 Yrn Bashir MD [address] [id number] Consulting Physician Gastroenterology 04/15/20 Sherly De Jesus MD [address] [id number] Consulting Physician Urology 04/15/20 documented as of this encounter
--- OUTSIDE RECORDS SUMMARY | 2024-07-18 11:41 | XMS_ITS | Encounter Summary ---
Author Organization [facility] Healthcare Address [address] [place] [address] Care Team Providers Care Medical Records Field Technician Name Role Phone Lyudmila Shaw MD Primary Care Provide r Yrn Bashir MD Unavailable [phone] Sherly De Jesus MD Unavailable [phone] Encounter Details Date Type Department Care Team (Late st Contact Info) Description 08/27/2020 Telephone [facility] - Imaging [address] [place] [address] Transcribed Order, Provider Social History Tobacco Use Types Packs/Day [...] and Family Not on file 11/12/2019 Attends Catholic Services Not on file 11/11 Active Member of Clubs or Organizations Not on f ile 11/12/2019 Attends Club or Organization Meetings Not on sana e 11/12/2019 Are you , , di vorced, , never , or living with a partner? 11/12/2019 AUDIT-C Answer Date Recorded Q1: How often do you have a drink containing alc ohol? Never 08/10/2020 Average Number of Drinks Not on file 021 Frequency of Binge Drinking Not on file 02/2021 Exercise Vital Sign Answer Date Recorde d [...] on file Legal Sex Female 3:46 AM TECHNICAL AIDE Gender Identity Female 09/04/2020 8:26 AM CDT Sexual Orientation Not on file documented as of this encounter Plan of Treatment Not on file documented as of this encounter Visit Diagnoses Not on filedocumented in this encounter Care Teams Medical Records Field Technician Relationship Specialty Start Date End Date Lyudmila Shaw MD [address] [address] PCP - General 06/17/18 Yrn Bashir MD [address] [address] Consulting Physician Gastroenterology 04/15/20 Sherly De Jesus MD [address] [facility] [address] [place] [address] Consulting Physician Urology 04/15/20 documented as of this encounter
--- OUTSIDE RECORDS SUMMARY | 2024-07-18 11:41 | XMS_ITS | Encounter Summary ---
Author Organization [facility] Healthcare Address [address] [place] [address] Care Team Providers Care Process Development Associate Name Role Phone Lyudmila Shaw MD Primary Care Provide r Yrn Bashir MD Unavailable [phone] Sherly De Jesus MD Unavailable [phone] Encounter Details Date Type Department Care Team (Late st Contact Info) Description 07/20/2020 Telephone [facility] - Interventional Radiology [address] [place] [address] Geena Hernadez RN Social History [...] and Family Not on file 11/12/2019 Attends Buddhist Services Not on file 11/11 Active Member [...] on file Legal Sex Female 3:46 AM TITLE DEPARTMENT MANAGER Gender Identity Female 09/04/2020 8:26 AM CDT Sexual Orientation Not on file documented as of this encounter Plan of Treatment Not on file documented as of this encounter Visit Diagnoses Not on filedocumented in this encounter Care Teams Process Development Associate Relationship Specialty Start Date End Date Lyudmila Shaw MD [address] [facility] [address] [place] [address] PCP - General 06/17/18 Yrn Bashir MD [address] [facility] [address] [place] [address] Consulting Physician Gastroenterology 04/15/20 Sherly De Jesus MD [address] [facility] [address] [place] [address] Consulting Physician Urology 04/15/20 documented as of this encounter
--- OUTSIDE RECORDS SUMMARY | 2024-07-18 11:41 | XMS_ITS | Encounter Summary ---
Author Organization [facility] Healthcare Address [address] [place] [address] Care Team Providers Care Cement Tester Assistant Name Role Phone Lyudmila Shaw MD Primary Care Provide r Yrn Bashir MD Unavailable Sherly De Jesus MD Unavailable [phone] Encounter Details Date Type Department Care Team (Late st Contact Info) Description 06/09/2020 Telephone [facility] - Imaging [address] [place] [address] Transcribed Order, Provider Social History [...] and Family Not on file 11/12/2019 Attends Baptism Services Not on file 11/11 Active Member [...] on file Legal Sex Female 3:46 AM RN TRANSFER Gender Identity Female 09/04/2020 8:26 AM CDT Sexual Orientation Not on file documented as of this encounter Plan of Treatment Not on file documented as of this encounter Visit Diagnoses Not on filedocumented in this encounter Care Teams Cement Tester Assistant Relationship Specialty Start Date End Date Lyudmila Shaw MD [address] [facility] [address] [place] [address] PCP - General 06/17/18 Yrn Bashir MD [address] [facility] [address] [place] [address] Consulting Physician Gastroenterology 04/15/20 Sherly De Jesus MD [address] [facility] [address] [place] [address] Consulting Physician Urology 04/15/20 documented as of this encounter
--- OUTSIDE RECORDS SUMMARY | 2024-07-18 11:41 | XMS_ITS | Encounter Summary ---
Author Organization [facility] Healthcare Address [address] [place] [address] Care Team Providers Care Software Development Analyst Name Role Phone Lyudmila Shaw MD Primary Care Provide r Yrn Bashir MD Unavailable [phone] Sherly De Jesus MD Unavailable [phone] Encounter Details Date Type Department Care Team (Late st Contact Info) Description 04/12/2020 Telephone [facility] - Interventional Radiology [address] [place] [address] Ernestina Moran RN Social History Tobacco Use Types Packs/Day [...] and Family Not on file 11/12/2019 Attends Yazdanism Services Not on file 11/11 Active Member [...] on file Legal Sex Female 3:46 AM COORDINATOR OF HEALTH SERVICES Gender Identity Female 09/04/2020 8:26 AM CDT Sexual Orientation Not on file documented as of this encounter Plan of Treatment Not on file documented as of this encounter Visit Diagnoses Not on filedocumented in this encounter Care Teams Software Development Analyst Relationship Specialty Start Date End Date Lyudmila Shaw MD [address] [facility] [address] [place] [address] PCP - General 06/17/18 Yrn Bashir MD [address] [facility] [address] [place] [address] Consulting Physician Gastroenterology 04/15/20 Sherly De Jesus MD [address] [facility] [address] [place] [address] Consulting Physician Urology 04/15/20 documented as of this encounter
--- OUTSIDE RECORDS SUMMARY | 2024-07-18 11:41 | XMS_ITS | Continuity of Care Document ---
Author Organization [facility] Address [address] [place] [address] [address] [place] [address] Phone Care Team Providers Care Inspector Brake Lining Name Role Phone Brett Strauss Unavailable Unavailable Advance Directives Directive Yes / No Effective Date File Name No Information Encounters Encounter Description Practice Location Reason(s) For Visit Diagnoses Date Provider Providers Copied on Encounter [facility], [id number] [place] [address] [address], [place], [place], [id number], [place] tel:[phone] [facility] [place] No Information [phone]. [address] [facility] [place] , [address], [place], [address], [place]. tel:[phone] Family History Family Member Type Diagnosis Age At Onset No Information Payers Payer name Insurance type Covered green party ID Authoriza tion(s) No Information Social History [...]
--- OUTSIDE RECORDS SUMMARY | 2024-07-18 11:41 | XMS_ITS | Encounter Summary ---
Author Organization [facility] Healthcare Address [address] [place] [address] Care Team Providers Care Rug Touch Up Painter Name Role Phone Lyudmila Shaw MD Primary Care Provide r Yrn Bashir MD Unavailable [phone] Sherly De Jesus MD Unavailable [phone] Encounter Details Date Type Department Care Team (Late st Contact Info) Description 02/09/[address] [facility] - Imaging [address] [place] [address] Transcribed Order, Provider Social History [...] and Family Not on file 11/12/2019 Attends Gnosticist Services Not on file 11/11 Active Member of Clubs or Organizations Not on f ile 11/12/2019 Attends Club or Organization Meetings Not on sana e 11/12/2019 Are you , , di vorced, , never , or living with a partner? 11/12/2019 AUDIT-C Answer Date Recorded Q1: How often do you have a drink containing alc ohol? Never 09/27/2020 Average Number of Drinks Not on file 021 Frequency of Binge Drinking Not on file 09/03 Exercise Vital Sign Answer Date Recorde d [...] on file Legal Sex Female 3:46 AM SENIOR ORACLE DEVELOPER Gender Identity Female 09/04/2020 8:26 AM CDT Sexual Orientation Not on file documented as of this encounter Plan of Treatment Not on file documented as of this encounter Visit Diagnoses Not on filedocumented in this encounter Care Teams Rug Touch Up Painter Relationship Specialty Start Date End Date Lyudmila Shaw MD [address] [address] PCP - General 06/17/18 Yrn Bashir MD [address] [address] Consulting Physician Gastroenterology 04/15/20 Sherly De Jesus MD [address] [facility] [address] [place] [address] Consulting Physician Urology 04/15/20 documented as of this encounter
--- OUTSIDE RECORDS SUMMARY | 2024-07-18 11:42 | XMS_ITS | Encounter Summary ---
Author Organization [facility] Address [address] [facility] [place] [address] Care Team Providers Care Land Management Supervisor Name Role Phone Pancho Hatfield MD Unavailable Enedelia LAMBERT MD, Frank Unavailable [phone] Encounter Details Date Type Department Care Team (Late st Contact Info) Description 02/22/2023 Lab Requisition [facility] - DermPath Lab [address] [facility], [place] [id number] Casey Forrester MD [address] [place] [address] Social History Tobacco Use Types Packs/Day Years Used Date Smoking Tobacco: Never Smokeless Tobacco: Never Alcohol Use Standard Drinks/Week Comments No 0 (1 standard drink = 0.6 oz pur e alcohol) Sex and Gender Information Value Date Recorded Sex Assigned at Female 06/13/2021 9:49 AM ROLLER HELPER Gender Identity Female 06/13/2021 9:49 AM ROLLER HELPER Sexual Orientation Not on file documented as of this encounter Functional Status Functional Status Response Date of Assess ment Is person deaf or have serious hearing difficult y? No 04/01/2021 Is person blind or have serious difficulty seein g? No 04/01/2021 Does person have serious dif ficulty walking/climbing stairs? No 04/01/2021 Does person have difficulty dressing/bathing? No 04/01/2021 Does person have difficulty doing errands alone? No 04/01/2021 Cognitive Status Response Date of Assessm ent Does person have difficulty concentrating/remembering/making decisions? No 04/01/2021 documented as of this encounter Plan of Treatment Not on file documented as of this encounter Procedures Procedure Name Priority Date/Time Associated Diagnosis Comments DERMATOPATHOLOGY Routine 02/21/2023 12:0 0 AM CDT documented in this encounter Results * DERMATOPATHOLOGY (02/21/2023 12:00 AM CDT) Case Report Dermatopathology Report Case: [id number] Authorizing Provider: Casey Forrester MD Collected: 02/21/2023 12:00 AM Ordering Location: [facility] DermPath Lab Received: 02/22/2023 01:13 PM Pathologist: Heather Padron MD Specimen: Skin, left lower back 1:45 PM CDT DERMATOPATHOLOGY LABORATORY Final Diagnosis Specimen A. SKIN, left lower back: LICHEN PLANUS-LIKE KERATOSIS (BENIGN LICHENOID KERATOSIS) (L82.1) 1:45 PM CDT DERMATOPATHOLOGY LABORATORY Clinical History R/O ISK vs BCC 1:45 PM CDT DERMATOPATHOLOGY LABORATORY Gross Description Specimen A: Received is one formalin filled container labeled with the patient's name and designated left lower back. The specimen consists of a shave biopsy measuring 10x8x1 mm. Jar 0. 1:45 PM CDT DERMATOPATHOLOGY LABORATORY Microscopic Description Specimen A. SKIN, left lower back: The epidermis is mildly acanthotic. There is a lichenoid infiltrate with vacuolar changes of basilar keratinocytes and scattered necrotic keratinocytes. 1:45 PM CDT DERMATOPATHOLOGY LABORATORY Disclaimer An external and internal positive and negative controls are appropriate for the histochemical, immunohistochemical and immunofluorescence stain(s) in this case (if any), except where stated explicitly. The performance characteristics of the stain(s) cited in this report were developed and its performance characteristic determined by the Dermatopathology Laboratory at [facility], directed by Dr. Kathryn Burton. These tests need not be, and therefore are not, approved by the [place] Food and Drug Administration. The tests are used for clinical purposes. Billing Codes Specimen Charges Stain Charges 95435 1 3 1:45 PM CDT DERMATOPATHOLOGY LABORATORY Embedded Images 3 1:45 PM CDT DERMATOPATHOLOGY LABORATORY Pathology/Cytolog y TISSUE SPECIMEN FROM SKIN / Unknown 02/21/2023 02/22/2023 1:13 PM CDT Casey Forrester MD LAB - PATHOLOGY/CYTO LOGY ORDERABLES DERMATOPATHOLOGY LABORATORY [facility] - Department of Dermatology [address], [address] [phone] documented in this encounter Visit Diagnoses Not on filedocumented in this encounter Care Teams Land Management Supervisor Relationship Specialty Start Date End Date Pancho Hatfield MD Orthopedic Surgery 05/03/11 [place] [address] [address] [place] [id number] Orthopedic Surgery 01/06/19 documented as of this encounter
--- OUTSIDE RECORDS SUMMARY | 2024-07-18 11:42 | XMS_ITS | Referral Summary ---
Author Organization [facility] Address [address] [place] [address] Care Team Providers Care Sheltered Workshop Executive Director Name Role Phone Lyudmila Shaw MD Primary Care Provide r Yrn Bashir MD Unavailable [phone] Sherly De Jesus MD Unavailable [phone] Allergies Active Allergy Reactions Criticality Noted Date Comments Celecoxib Rash Medium 02/13/2011 Nitrofurantoin Vomiting Low 08/10/2020 Penicillins Rash Medium 02/13/2011 1997 Sulfa (Sulfonamide Antibiotics) Rash Medium Medications simvastatin (ZOCOR) 40 mg tablet Take 40 mg by mouth nightly. Active meloxicam (MOBIC) 15 mg tablet Take 15 mg by mouth daily as needed Active fenofibrate (TRICOR) 54 mg tablet Take 54 mg by mouth nightly Active omeprazole (PriLOSEC) 20 mg capsule Take 20 mg by mouth as needed Active calcium carbonate/vitam in D3 (CALTRATE 600 PLUS D ORAL) Take 2 tablet/chew tab by mouth daily Active Bifidobacterium infantis (ALIGN) 4 mg capsule Take 4 mg by mouth every other day Active guaiFENesin ER (MUCINEX) 600 mg 12 hr tablet Take 600 mg by mouth as needed for cough Active acetaminophen (TYLENOL) 500 mg tablet Take 500 mg by mouth every 6 (six) hours as needed for pain Active Active Problems Problem Noted Date Diagnosed Date Abnormal cholangiogram 02/17/2021 Moderate malnutrition (CMS/HCC) 04/14/2020 Kidney stones 04/05/2020 GERD (gastroesophageal reflux disease) 0 Osteoarthritis 04/05/2020 Hyperlipidemia 04/05/2020 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 Gender Identity Female 09/04/2020 8:26 AM CDT Sexual Orientation Not on file Last Filed Vital Signs Vital Sign Reading Time Taken Comments Blood Pressure 117/67 09/27/2020 1:05 PM CDT Pulse 71 09/27/2020 1:05 PM CDT Temperature 36.8 C (98.3 F) 09/27/2020 9:58 AM CDT Respiratory Rate 14 09/27/2020 1:05 PM CDT Oxygen Saturation 99% 09/27/2020 1:05 PM CDT Inhaled Oxygen Concentration - - Weight 72.6 kg (160 lb) 09/27/2020 9:58 AM CDT Height 162.6 cm (5' 4 ) 09/27/2020 9:58 AM CDT Body Mass Index 27.46 09/27/2020 9:58 AM CDT Plan of Treatment Not on file Medical Devices Implanted Type Area Vocational Ed Instructor Device Identifier Shelf Expiration Date Model / Serial / Lot Left Knee Replacement Left: Knee Left Hip Replacement Left: Hip Right Knee Replacement Right: Knee [employer] [id number] Amplatz 8.5fr 26cm 6 Sideport Introducer Catheter String - [id number] Implanted:Qty: 1 on 08/11/2020 at [facility] [employer] [id number] / / Explanted Type Area Vocational Ed Instructor Device Identifier Shelf Expiration Date Model / Serial / Lot [employer] 6341 Tran Flexi-Stent 4fr 2cm Small Pigtail Straight Flexible .025 - [id number] Explanted:Qty: 1 on 04/14/2020 by Bossman Pickering MD at [facility] N/A: Pancreas [employer] 12/01/2024 [id number] / / [id number] [employer] [id number] Cotton-Farias 7fr 10cm Taper Tip Guidewire Proximal Distal Flap - [id number] Implanted:Qty: 1 on 04/14/2020 by Bossman Pickering MD at [facility] Explanted:Qty: 1 on 05/10/2020 by Yrn Bashir MD at [facility] N/A: Bile Duct 5 CUPS and some sugar Medical Inc 09/22/2020 [id number] / / [id number] [employer] Oral 400-171 C-Flex 6fr 70cm Taper Tip 1 Lumen Injection Hub Radiopaque Latex Free - [id number] Explanted:Qty: 1 on 08/10/2020 at [facility] Qire [id number] / / Description:Item documented as one time supply on supply screen by RN. Item listed in EPIC under implant screen, so khushi entered on implant screen as implanted/explanted for charging, and left supply screen items as non-chargeable. Insurance MEDICARE [facility] MEDICARE [facility] MEDICARE [facility] Address: [address] [place] [phone] [facility] Member Subscriber Plan / Payer (Ef fective 2018-Present) Name:Hamida Christie Relation to Subscriber:Self Name:Hamida Christie Payer ID:[id number] Group ID:[id number] Type:COMMERCIAL Address: [address] [place] [phone] Advance Directives For more information, please contact: [phone] * Full Code (Latest Code Status on File) Date Activated Date Inactivated Comments 09/27/2020 10:03 AM 09/27/2020 5:23 PM * Full Code Date Activated Date Inactivated Comments 08/11/2020 4:39 PM 08/12/2020 2:22 PM * Full Code Date Activated Date Inactivated Comments 08/10/2020 4:33 PM 08/11/2020 4:39 PM * Full Code Date Activated Date Inactivated Comments 04/13/2020 1:26 PM 04/15/2020 10:09 PM Care Teams Sheltered Workshop Executive Director Relationship Specialty Start Date End Date Lyudmila Shaw MD [address] [facility] [address] [place] [address] PCP - General 06/17/18 Yrn Bashir MD [address] [address] Consulting Physician Gastroenterology 04/15/20 Sherly De Jesus MD [address] [address] Consulting Physician Urology 04/15/20
--- OUTSIDE RECORDS SUMMARY | 2024-07-18 11:42 | XMS_ITS | Referral Summary ---
Author Organization [facility] Address [address] [place] [address] Care Team Providers Care Avaya Engineer Name Role Phone Pancho Hatfield MD Unavailable [phone] Enedelia LAMBERT MD, Frank Unavailable [phone] Source Comments [facility],non-owned Affiliates and Associated Physician Practices is amultiple site organization consisting of ambulatory clinics and hospital sitesin [place], [place], [place] and [place]. This disclosure is being madepursuant to the Care Everywhere program and may not contain all information available regarding this patient. Last updated 18.[facility] Allergies Active Allergy Reactions Criticality Noted Date [...] Sex Assigned at Female 06/13/2021 9:49 AM FISHER LINE Gender Identity Female 06/13/2021 9:49 AM FISHER LINE Sexual Orientation Not on file Last Filed [...] Mass Index 27.98 03/31/2021 7:41 AM CDT Functional Status Functional Status Response Date of [...] person have difficulty concentrating/remembering/making decisions? No 04/01/2021 Plan of Treatment Not on file Medical Devices Implanted Type Area Director Oracle Database Device Identifier Shelf Expiration Date Model / Serial / Lot Liner Actb Mxrm +3mm 23 36mm E-Poly Hip Implanted:Qty: 1 on 02/11/2019 by Emmanuel Mcdaniels IV, MD at [facility] Left: Hip [employer] 07/13/2023 [id number] / / [id number] Shell Actb 52mm Hip Lmt Hl Rnglc+ Implanted:Qty: 1 on 02/11/2019 by Emmanuel Mcdaniels IV, MD at [facility] Left: Hip [employer] 10/28/2027 [id number] / / [id number] Stem Offset Uncemented 4 Taper Implanted:Qty: 1 on 02/11/2019 by Emmanuel Mcdaniels IV, MD at [facility] Left: Hip 09/02/2023 [id number] / / [id number] Ceramic Femoral Head Implanted:Qty: 1 on 02/11/2019 by Emmanuel Mcdaniels IV, MD at [facility] Left: Hip 10/01/2028 [id number] / / [id number] Ursula Stem Implanted:Qty: 1 on 03/31/2021 by Emmanuel Mcdaniels IV, MD at [facility] Right: Hip 08/03/2027 [id number] / / [id number] Acetabular Shell Implanted:Qty: 1 on 03/31/2021 by Emmanuel Mcdaniels IV, MD at [facility] Right: Hip 09/20/2030 [id number] / / [id number] Linr Actb 45d 7mm Ofst Ii 52mm 36mm Implanted:Qty: 1 on 03/31/2021 by Emmanuel Mcdaniels IV, MD at [facility] Right: Hip [employer] 08/03/2025 [id number] / / [id number] Bone Screw Implanted:Qty: 1 on 03/31/2021 by Emmanuel Mcdaniels IV, MD at [facility] Right: Hip 01/21/2031 / / [id number] Head Fem +0mm 05/17 Tpr 36mm Hip Oxnm Implanted:Qty: 1 on 03/31/2021 by Emmanuel Mcdaniels IV, MD at [facility] Right: Hip [employer] 01/29/2031 [id number] / / [id number] Explanted Type Area Director Oracle Database Device Identifier Shelf Expiration Date Model / Serial / Lot Pin Hlf 255mm 5mm Jtx Lng Orth Ss 45mm Explanted:Qty: 1 on 03/31/2021 by Emmanuel Mcdaniels IV, MD at [facility] Right: Hip [employer] [id number] / / Procedures Procedure Name Priority Date/Time Associated Diagnosis Comments COMPREHENSIVE METABOLIC PANEL Routine 01/17/2019 10:21 AM CDT Preop examination from Last 3 Months or Most Recently Relevant to Health Maintenance Results * (ABNORMAL) COMPREHENSIVE METABOLIC PANEL (01/17/2019 10:21 AM CDT) [facility] Glucose 103 74 - 106 mg/dL 01/17/2019 10:59 AM CDT [facility] Sodium 141 136 - 145 mmol/L 01/17/2019 10:59 AM CDT [facility] Potassium 3.9 3.5 - 5.1 mmol/L 01/17/2019 10:59 AM CDT [facility] Chloride 104 98 - 107 mmol/L 01/17/2019 10:59 AM CDT [facility] CO2 29 23 - 31 mmol/L 01/17/2019 10:59 AM CDT [facility] Calcium 10.1 8.4 - 10.2 mg/dL 01/17/2019 10:59 AM CDT [facility] Anion Gap 8 8 - 16 mmol/L 01/17/2019 10:59 AM CDT [facility] BUN 13 9.8 - 20.1 mg/dL 01/17/2019 10:59 AM CDT [facility] Creatinine 0.78 0.55 - 1.02 mg/dL 01/17/2019 10:59 AM CDT [facility] Alkaline Phosphatase 93 40 - 150 U/L 01/17/2019 10:59 AM CDT [facility] ALT 11(L) 13 - 61 U/L 01/17/2019 10:59 AM CDT [facility] AST 15 5 - 34 U/L 01/17/2019 10:59 AM CDT [facility] Protein Total 7.1 6.4 - 8.3 gm/dL 01/17/2019 10:59 AM CDT [facility] Albumin 4.2 3.2 - 4.6 gm/dL 01/17/2019 10:59 AM CDT [facility] Bilirubin Total 0.5 0.2 - 1.0 mg/dL 01/17/2019 10:59 AM CDT [facility] eGFR by MDRD >60 >60 mL/min/1.7 3m2 01/17/2019 10:59 AM CDT [facility] eGFR by MDRD >60 >60 mL/min/1.7 3m2 01/17/2019 10:59 AM CDT [facility] Blood BLOOD SPECIMEN / Unknown Venipuncture / Unknown 01/17/2019 10:21 AM CDT 01/17/2019 10:30 AM CDT Shirin Canales DORR OPERATOR-REAL ESTATE PHOTOGRAPHER LAB - CHEM ISTRY ORDERABLES [facility] [address] [place] [address] from Last 3 Months or Most Recently [...] 2:36 PM 04/16/2011 11:38 PM Care Teams Avaya Engineer Relationship Specialty Start Date End Date Pancho Hatfield MD Orthopedic Surgery 05/03/11 [place] [address] [address] [address] Orthopedic Surgery 01/06/19
--- OUTSIDE RECORDS SUMMARY | 2024-07-18 11:42 | XMS_ITS | Clinical Summary ---
Author Organization [facility] Address [address] [place] [address] Care Team Providers Care Photo Tech Name Role Phone Lyudmila Shaw MD Primary Care Provide r Yrn Bashir MD Unavailable [phone] Sherly De Jesus MD Unavailable Allergies Active Allergy Reactions Criticality Noted Date [...] (04/13/2020): Added automatically from request for surgery [id number] Resolved Problems Problem Noted Date Diagnosed Date Resolved Date Uterine prolapse 12/11/2019 04/05/2020 Generalized abdominal pain 11/12/2019 1 06/05/2019 Immunizations Name Administration Dates Next Due Influenza, Quadrivalent, Hig h Dose, Preservative Free, Intrr 04/13/2020 Surgical History Surgery Date Site/Laterality Comments SC DILATION & CURETTAGE DX&/THER NONOBSTETRIC SC ARTHROPLASTY KNEE TIBIAL PLATEAU Knee Replacement - (Added by TW Conv) SC UNLISTED PROCEDURE DENTOALVEOLAR STRUCTURES Oral Surgery Tooth Extraction - (Added by TW Conv) SC HYSTEROSCOPY ENDOMETRIAL ABLATION SECTION TOTAL HIP ARTHROPLASTY 06/04/2018 - 06/03/2019 Left REPLACEMENT TOTAL KNEE 2010, 2011 Bilateral CHOLECYSTECTOMY 03/04/2020 - 04/03/2020 ANKLE SURGERY 06/04/2006 - 06/03/2007 Right fusion PERCUTANEOUS NEPHROSTOMY PCN LEFT 07/20/2020 Left URETERAL STENT PLACEMENT VIA EXISTING TRACT LEFT 08/10/2020 Left URETERAL STENT PLACEMENT VIA EXISTING TRACT LEFT 08/11/2020 Left HIP ARTHROPLASTY Bilateral KNEE ARTHROPLASTY KIDNEY STONE EVALUATION Medical History Medical History Date Comments Postmenopausal bleeding MRSA (methicillin resistant staph aureus) cultur e positive 1993 GERD (gastroesophageal reflux disease) 0 Osteoarthritis 04/05/2020 Hyperlipidemia 04/05/2020 Kidney stone Family History Medical History Relation Name Comments Cancer Mother Family history of malignant neoplasm - (Added by TW Conv) Relation Name Status Comments Father Mother Social History Tobacco Use Types Packs/Day Years [...] and Family Not on file 11/12/2019 Attends Taoist Services Not on file 11/11 Active Member [...] on file Legal Sex Female 3:46 AM KENNEL HAND Gender Identity Female 09/04/2020 8:26 AM CDT Sexual Orientation Not on file Obstetrics History Para Term AB IAB SAB Ectopic Multiple Livin g Live Births 3 3 3 3 3 Date Outcome GA Total Labor Labor/2nd/3rd Weight Sex Type Anes PTL Rashmi A1 A5 Name Clin 1976 Term F Vag-S pont Living 1981 Term F Vag-S pont Living 1988 Term M CS-Un spec Living Last Filed Vital Signs Vital Sign Reading [...] on file Medical Devices Implanted Type Area Collarette Separator Device Identifier Shelf Expiration Date Model / Serial / Lot Left Knee Replacement Left: Knee Left Hip Replacement Left: Hip Right Knee Replacement Right: Knee [employer] [id number] Amplatz 8.5fr 26cm 6 Sideport Introducer Catheter String - [id number] Implanted:Qty: 1 on 08/11/[address] at [facility] [employer] [id number] / / Explanted Type Area Collarette Separator Device Identifier Shelf Expiration Date Model / Serial / Lot [employer]oR [employer] Inc 6341 Tran Flexi-Stent 4fr 2cm Small Pigtail Straight Flexible .025 - [id number] Explanted:Qty: 1 on 04/14/2020 by Bossman Pickering MD at [facility] N/A: Pancreas [employer] 12/01/2024 [id number] / / [id number] [employer] [id number] Cotton-Farias 7fr 10cm Taper Tip Guidewire Proximal Distal Flap - [id number] Implanted:Qty: 1 on 04/14/2020 by Bossman Pickering MD at [facility] Explanted:Qty: 1 on 05/10/2020 by Ynr Bashir MD at [facility] N/A: Bile Duct [employer] 09/22/2020 [id number] / / [id number] [employer] Oral 400-171 C-Flex 6fr 70cm Taper Tip 1 Lumen Injection Hub Radiopaque Latex Free - [id number] Explanted:Qty: 1 on 08/10/2020 at [facility] [employer] [id number] / / Description:Item documented as one time supply on supply screen by RN. Item listed in EPIC under implant screen, so strategic accounts manager entered on implant screen as implanted/explanted for charging, and left supply screen items as non-chargeable. Insurance MEDICARE [facility] MEDICARE [facility] MEDICARE AARP Advance Directives For more information, please contact: [phone] * Full Code (Latest Code Status on File) Date Activated Date Inactivated Comments 09/27/2020 10:03 AM 09/27/2020 5:23 PM * Full Code Date Activated Date Inactivated Comments 08/11/2020 4:39 PM 08/12/2020 2:22 PM * Full Code Date Activated Date Inactivated Comments 08/10/2020 4:33 PM 08/11/2020 4:39 PM * Full Code Date Activated Date Inactivated Comments 04/13/2020 1:26 PM 04/15/2020 10:09 PM Care Teams Photo Tech Relationship Specialty Start Date End Date Lyudmila Shaw MD [address] [place] [address] PCP - General 06/17/18 Yrn Bashir MD [address] [address] Consulting Physician Gastroenterology 04/15/20 Sherly De Jesus MD [address] [address] Consulting Physician Urology 04/15/20
--- OUTSIDE RECORDS SUMMARY | 2024-07-18 11:42 | XMS_ITS | Patient Health Summary ---
Author Organization [facility] Address [address] [place] [address] Care Team Providers Care Industrial Technologist Name Role Phone Pancho Hatfield MD Unavailable [phone] Enedelia LAMBERT MD, Frank Unavailable [phone] Note from [facility],non-owned Affiliates and Associated Physician Practices is amultiple site organization consisting of ambulatory clinics and hospital sitesin [place], [place], [place] and [place]. This disclosure is being madepursuant to the Care Everywhere program and may not contain all information available regarding this patient. Last updated 18.[facility] Allergies * Celecoxib(Rash) -Medium Criticality * Nitrofurantoin(Nausea and/or Vomiting) * Penicillins(Rash) -Low Criticality * Sulfa Drugs(Rash) -Low Criticality Medications * Be aware that medications may not be up to date on this document. Alwaysverify current medications with the patient. * calcium-vitamin D (CALTRATE PLUS D) 600-200 MG-UNIT tablet Take 1 Tab by mouth 2 times daily. * multivitamin daily (THERAGRAN) tablet Take 1 Tab by mouth daily with food. * Probiotic Product (ALIGN PO) Take by mouth every 2 days * clindamycin (CLEOCIN) 300 MG capsule(Started 04/01/2019) Take 2 capsules by mouth once as needed (Dental Prophylaxis) 2 tablets one hour before dental work. * simvastatin (ZOCOR) 40 MG tablet Take 40 mg by mouth at bedtime * omeprazole (PRILOSEC) 20 MG capsule Take 20 mg by mouth once daily as needed * guaiFENesin ER 12hr (MUCINEX) 600 MG tablet Take 600 mg by mouth once daily as needed for Cough * docusate sodium (COLACE) 100 MG capsule Take 100 mg by mouth once daily as needed for Constipation * HYDROcodone-acetaminophen (NORCO) 10-325 MG tablet(Started 04/02/2021) Take 0.5 (one-half) tablet to 1 (one) tablet by mouth every 6 hours as needed for Pain * meloxicam (MOBIC) 15 MG tablet(Started 05/16/2021) TAKE 1 TABLET BY MOUTH EVERY DAY Active Problems Problem Noted Date Diagnosed Date Arthralgia of hip 02/11/2019 Knee joint replacement by other means 11/16/2011 DJD (degenerative joint disease) 10/26/2011 Immunizations * INFLUENZA VACCINE, QUADR. (FLUZONE; FLULAVAL; FLUARIX; AFLURIA QUADRIVALENT; 6MO+), 0.5 ML (IIV4)(Given 02/13/2019) Social History Tobacco Use Types Packs/Day Years Used Date Smoking Tobacco: Never Smokeless Tobacco: Never Alcohol Use Standard Drinks/Week Comments No 0 (1 standard drink = 0.6 oz pur e alcohol) Sex and Gender Information Value Date Recorded Sex Assigned at Female 06/13/2021 9:49 AM PATIENT ASSESSMENT COORDINATOR Gender Identity Female 06/13/2021 9:49 AM PATIENT ASSESSMENT COORDINATOR Sexual Orientation Not on file Last Filed [...] Mass Index 27.98 03/31/2021 7:41 AM CDT Medical Devices Implanted Type Area Economic History Teacher Device Identifier Shelf Expiration Date Model / Serial / Lot Liner Actb Mxrm +3mm 23 36mm E-Poly Hip Implanted:Qty: 1 on 02/11/2019 by Emmanuel Mcdaniels IV, MD at [facility] Left: Hip [employer] 07/13/2023 [id number] / / [id number] Shell Actb 52mm Hip Lmt Hl Rnglc+ Implanted:Qty: 1 on 02/11/2019 by Emmanuel Mcdaniels IV, MD at [facility] Left: Hip [employer] 10/28/2027 [id number] / / [id number] Stem Offset Uncemented 4 Taper Implanted:Qty: 1 on 02/11/2019 by Emmanuel Mcdaniels IV, MD at [facility] Left: Hip 09/02/2023 [id number] / / [id number] Ceramic Femoral Head Implanted:Qty: 1 on 02/11/2019 by Emmanuel Mcdaniels IV, MD at [facility] Left: Hip 10/01/2028 [id number] / / [id number] Ursula Stem Implanted:Qty: 1 on 03/31/2021 by Emmanuel Mcdaniels IV, MD at [facility] Right: Hip 08/03/2027 [id number] / / [id number] Acetabular Shell Implanted:Qty: 1 on 03/31/2021 by Emmanuel Mcdaniels IV, MD at [facility] Right: Hip 09/20/[id number] / / [id number] Linr Actb 45d 7mm Ofst Ii 52mm 36mm Implanted:Qty: 1 on 03/31/2021 by Emmanuel Mcdaniels IV, MD at [facility] Right: Hip [employer] 08/03/2025 [id number] / / [id number] Bone Screw Implanted:Qty: 1 on 03/31/2021 by Emmanuel Mcdaniels IV, MD at [facility] Right: Hip 01/21/2031 / / [id number] Head Fem +0mm 12/14 Tpr 36mm Hip Oxnm Implanted:Qty: 1 on 03/31/2021 by Emmanuel Mcdaniels IV, MD at [facility] Right: Hip [employer] 01/29/2031 [id number] / / [id number] Explanted Type Area Economic History Teacher Device Identifier Shelf Expiration Date Model / Serial / Lot Pin Hlf 255mm 5mm Jtx Lng Orth Ss 45mm Explanted:Qty: 1 on 03/31/2021 by Emmanuel Mcdaniels IV, MD at [facility] Right: Hip [employer] [id number] / / Procedures * DERMATOPATHOLOGY(Performed 02/21/2023) * XR HIP RIGHT 2VW OR MORE(Performed 06/20/2021) Performed for Status post total replacement of right hip * XR HIP RIGHT 2VW OR MORE(Performed 04/25/2021) Performed for Status post total replacement of right hip * CBC W AUTO DIFFERENTIAL(Performed 04/01/2021) * FL BRNUO SURGERY(Performed 03/31/2021) Performed for Right hip pain * NEURAXIAL BLOCK(Performed 03/31/2021) * [place] TOTAL HIP REPLACEMENT(Performed 03/31/2021) * XR PELVIS W BILAT HIP 2VW(Performed 02/28/2021) Performed for Right hip pain, History of hip replacement, total, left * XR HIP LEFT 2VW OR MORE(Performed 05/12/2019) Performed for Status post total replacement of left hip * XR HIP LEFT 2VW OR MORE(Performed 03/10/2019) Performed for Status post total replacement of left hip * HGB HCT PANEL(Performed 02/13/2019) * HGB HCT PANEL(Performed 02/12/2019) * FL BRUNO SURGERY(Performed 02/11/2019) Performed for Arthralgia of hip, unspecified laterality * NEURAXIAL BLOCK(Performed 02/11/2019) * NH TOTAL HIP REPLACEMENT(Performed 02/11/2019) * EKG 12-LEAD(Performed 01/17/2019) Performed for Preop examination * CBC W AUTO DIFFERENTIAL(Performed 01/17/2019) Performed for Preop examination * COMPREHENSIVE METABOLIC PANEL(Performed 01/17/2019) Performed for Preop examination * CULTURE MSSA/MRSA(Performed 01/17/2019) Performed for Preop examination * XR HIP LEFT 2VW OR MORE(Performed 01/06/2019) Performed for Pain of both hip joints * XR KNEE LEFT 3VW(Performed 10/25/2012) Performed for Osteoarthrosis, Unspecified Whether Generalized Or Localized, Lower Leg, Knee Joint Replacement By Other Means * XR KNEE RIGHT 3VW(Performed 04/09/2012) Performed for Knee pain * XR KNEE LEFT 3VW(Performed 12/12/2011) Performed for Osteoarthrosis, unspecified whether generalized or localized, lower leg * IP CONSULT TO HOME HEALTH CARE(Performed 10/29/2011) * HGB HCT PANEL(Performed 10/28/2011) * HGB HCT PANEL(Performed 10/27/2011) * IP CONSULT TO HOSPITALIST(Performed 10/26/2011) * CULTURE MSSA/MRSA(Performed 09/20/2011) Performed for Other specified pre-operative examination * CBC W AUTO DIFFERENTIAL(Performed 09/20/2011) Performed for Other specified pre-operative examination * COMPREHENSIVE METABOLIC PANEL(Performed 09/20/2011) Performed for Other specified pre-operative examination * EKG 12-LEAD(Performed 09/20/2011) Performed for Other specified pre-operative examination * XR KNEE RIGHT 3VW(Performed 05/25/2011) Performed for Pain in joint, lower leg * CARDIAC EKG ORDER(Performed 04/18/2011) * HGB HCT PANEL(Performed 04/15/2011) * HGB HCT PANEL(Performed 04/14/2011) * IP CONSULT TO HOSPITALIST(Performed 04/13/2011) * CARDIAC EKG ORDER(Performed 03/17/2011) * COMPREHENSIVE METABOLIC PANEL(Performed 03/15/2011) Performed for Preoperative examination, unspecified * CBC W AUTO DIFFERENTIAL(Performed 03/15/2011) Performed for Preoperative examination, unspecified * CULTURE MSSA/MRSA(Performed 03/15/2011) Performed for Preoperative examination, unspecified Results * DERMATOPATHOLOGY (02/21/2023 12:00 AM CDT) Case Report Dermatopathology Report Case: [id number] Authorizing Provider: Casey Forrester MD Collected: 02/21/2023 12:00 AM Ordering Location: [facility] Derm[facility] Lab Received: 02/22/2023 01:13 PM Pathologist: Heather Padron MD Specimen: Skin, left lower back 09/25/202 3 1:45 PM CDT DERMATOPATHOLOGY LABORATORY Final Diagnosis Specimen A. SKIN, left lower back: LICHEN PLANUS-LIKE KERATOSIS (BENIGN LICHENOID KERATOSIS) (L82.1) 3 1:45 PM CDT DERMATOPATHOLOGY LABORATORY Clinical History R/O ISK vs BCC 3 1:45 PM CDT DERMATOPATHOLOGY LABORATORY Gross Description [...] characteristic determined by the Dermatopathology Laboratory at [facility], directed by Dr. Kathryn Burton. These tests need not be, and therefore are not, approved by the [place] Food and Drug Administration. The tests are used for clinical purposes. Billing Codes Specimen Charges Stain Charges 15835 1 3 1:45 PM CDT DERMATOPATHOLOGY LABORATORY Embedded Images 3 1:45 PM CDT DERMATOPATHOLOGY LABORATORY Pathology/Cytolog y TISSUE SPECIMEN FROM SKIN / Unknown 02/21/2023 02/22/2023 1:13 PM CDT Casey Forrester MD LAB - PATHOLOGY/CYTO LOGY ORDERABLES DERMATOPATHOLOGY LABORATORY [facility] - Department of Dermatology [address], [address] [phone] * XR HIP RIGHT 2VW OR MORE (06/20/2021 12:38 PM PATIENT ASSESSMENT COORDINATOR) Only the most recent of2 resultswithin the time period is included. Anatomical Region Laterality Modality Pelvis, Lower Extremity Computed Radiography Narrative 06/20/2021 12:39 PM PATIENT ASSESSMENT COORDINATOR Radha Fox, RT(R) 06/25/2021 2:59 PM See progress notes for results Emmanuel Mcdaniels IV, MD DIAGNOSTIC IMAGING O RDERABLES * (ABNORMAL) CBC W AUTO DIFFERENTIAL (04/01/2021 1:29 PM CDT) Only the most recent of4 resultswithin the time period is included. WBC 12.7(H) 4.4 - 10.7 x10E9/L 04/01/2021 1:34 PM CDT [facility] WBC Corrected 04/01/2021 1:34 PM CDT [facility] RBC 3.39(L) 3.80 - 5.20 x10E12/L 04/01/2021 1:34 PM CDT [facility] Hemoglobin 10.4(L) 12.0 - 15.6 gm/dL 04/01/2021 1:34 PM CDT [facility] Hematocrit 32.6(L) 35.9 - 45.5 % 04/01/2021 1:34 PM CDT [facility] MCV 96.2 80.7 - 98.3 fl 04/01/2021 1:34 PM CDT [facility] MCH 30.7 26.7 - 34.0 pg 04/01/2021 1:34 PM CDT [facility] MCHC 31.9 30.8 - 35.9 gm/dL 04/01/2021 1:34 PM CDT [facility] Platelet Count 207 153 - 416 x10E9/L 04/01/2021 1:34 PM CDT [facility] RDW-CV 12.4 12.1 - 14.9 % 04/01/2021 1:34 PM CDT [facility] MPV 10.2 9.4 - 12.9 fl 04/01/2021 1:34 PM CDT [facility] Neutrophils % 74.1(H) 44.0 - 73.0 % 04/01/2021 1:34 PM CDT [facility] Lymphocytes % 15.2(L) 20.0 - 43.0 % 04/01/2021 1:34 PM CDT [facility] Monocytes % 9.6 5.0 - 13.0 % 04/01/2021 1:34 PM CDT [facility] Eosinophils % 0.3 0.0 - 6.0 % 04/01/2021 1:34 PM CDT [facility] Basophils % 0.2 0.0 - 2.0 % 04/01/2021 1:34 PM CDT [facility] Immature Granulocytes 0.6 0 - 1 % 04/01/2021 1:34 PM CDT [facility] Neutrophil Absolute 9.38(H) 2.01 - 7.14 x10E9/L 04/01/2021 1:34 PM CDT [facility] Lymphocytes Absolute 1.93 1.07 - 3.94 x10E9/L 04/01/2021 1:34 PM CDT [facility] Monocytes Absolute 1.22(H) 0.26 - 1.07 x10E9/L 04/01/2021 1:34 PM CDT [facility] Eosinophils Absolute 0.04 0 - 0.47 x10E9/L 04/01/2021 1:34 PM CDT [facility] Basophils Absolute 0.03 0 - 0.08 x10E9/L 04/01/2021 1:34 PM CDT [facility] Immature Granulocytes Absolute 0.07(H) 0.00 - 0.06 x10E9/L 04/01/2021 1:34 PM CDT [facility] nRBC Auto 0 /100 WBC 04/01/2021 1:34 PM CDT [facility] Blood BLOOD SPECIMEN / Unknown Venipuncture / Unknown 04/01/2021 1:29 PM CDT 04/01/2021 1:32 PM CDT Dale Iraheta DO LAB - HEMATOLOGY O RDERABLES [facility] [address] [place] [address] * FL BRUNO SURGERY (03/31/2021 10:59 AM CDT) Only the most recent of2 resultswithin the time period is included. Anatomical Region Laterality Modality Radiographic Iman ging 03/31/2021 11:0 8 AM CDT Narrative 03/31/2021 10:59 AM CDT Examination: Intraoperative fluoroscopy. HISTORY: Right hip pain. FINDINGS: Intraoperative fluoroscopy provided. No radiologist present. *Reading Radiologist: Alberto Thomas on 03/31/2021 at 11:08 AM Procedure Note Alberto Thomas MD - 03/31/2021 Examination: Intraoperative fluoroscopy. HISTORY: Right hip pain. FINDINGS: Intraoperative fluoroscopy provided. No radiologist present. *Reading Radiologist: Alberto Thomas on 03/31/2021 at 11:08 AM Emmanuel Mcdaniels IV, MD FLUOROSCOPY ORDERABL ES * Neuraxial Block (03/31/2021 9:45 AM CDT) Narrative Carmenza Morales APRN-CRNA - 03/31/2021 9:45 AM CDT Carmenza Morales APRN-CRNA 03/31/2021 9:46 AM Neuraxial Block Note Pre-Procedure: Procedure Name: Neuraxial Block Patient Location: OR Indications: surgical anesthesia Pre-Anesthetic Checklist: Patient identified, IV Checked, Risks and benefits discussed, Surgical consent verified, Monitors and equipment, Site examined, Pre-op evaluation done, Time-out performed, Informed consent obtained, Questions answered/anesthesia questions answered and Allergies reviewed Anticoagulation/ Anti-thrombosis status confirmed? Yes Monitors: BP, continuous pluse ox, EKG and End tidal CO2 Patient Condition: sedated, meaningful contact maintained throughout procedure Procedure: Block Type: Spinal Prep: Betadine Sterile Field: mask, cap/hat, sterile established and sterile gloves Approach: midline Skin was localized? Yes Skin localized with: lidocaine (XYLOCAINE) 1 % injection, 1 mL Spinal Block: Needle Type: spinal needle Needle Gauge: 25 Needle Length: 90 mm Placement Site: L4-5 Number of Attempts: 1 CSF: free flow, aspiration before injection, aspiration during injection, aspiration after injection Local anesthetics used? No Degree of difficulty: none Procedure Tolerance: tolerated well Sensory Level: T8 Motor Blockade: Yes Vital Signs: Vital signs monitored and stable throughout. See anesthesia record for details. Start Time: 03/31/2021 9:25 AM Staff: Anesthesia Provider: Andrew, Carmenza A, SERVICE OBSERVER CHIEF-SIPHONER - performed the procedure Charisse Delacruz DO GENERAL ANESTHESIA O RDERABLES * XR PELVIS W BILAT HIP 2VW (02/28/2021 11:25 AM CDT) Anatomical Region Laterality Modality Pelvis, Lower Extremity Computed Radiography Narrative 02/28/2021 11:23 AM CDT Kylee Davis 03/06/2021 7:49 AM Please see progress notes for xray results Emmanuel Mcdaniels IV, MD DIAGNOSTIC IMAGING O RDERABLES * XR HIP LEFT 2VW OR MORE (05/12/2019 11:40 AM PATIENT ASSESSMENT COORDINATOR) Only the most recent of3 resultswithin the time period is included. Anatomical Region Laterality Modality Pelvis, Lower Extremity Computed Radiography Narrative 05/12/2019 12:52 PM PATIENT ASSESSMENT COORDINATOR Radha Fox RT(R) 05/13/2019 8:14 AM See progress notes for results Emmanuel Mcdaniels IV, MD DIAGNOSTIC IMAGING O RDERAMARIA ISABEL * (ABNORMAL) HGB HCT PANEL (02/13/2019 4:17 AM CDT) Only the most recent of6 resultswithin the time period is included. Hemoglobin 10.2(L) 12.0 - 15.6 gm/dL 02/13/2019 5:21 AM CDT [facility] Hematocrit 31.6(L) 35.9 - 45.5 % 02/13/2019 5:21 AM CDT [facility] Blood BLOOD SPECIMEN / Unknown Venipuncture / Unknown 02/13/2019 4:17 AM CDT 02/13/2019 5:08 AM CDT Emmanuel Mcdaniels IV, MD LAB - HEMATOLOGY ORD ERABLES [facility] [address] [place] [address] * Neuraxial Block (02/11/2019 8:29 AM CDT) Narrative Billy Hernandez APRN-SIPHONER - 02/11/2019 8:29 AM CDT Billy Hernandez APRN-CRNA 02/11/2019 8:32 AM Neuraxial Block Note Pre-Procedure: Procedure Name: Neuraxial Block Patient Location: OR Referred By: Dr. Mcdaniels. Indications: surgical anesthesia Pre-Anesthetic Checklist: Patient identified, IV Checked, Risks and benefits discussed, Surgical consent verified, Monitors and equipment, Site examined, Pre-op evaluation done, Time-out performed, Informed consent obtained, Questions answered/anesthesia questions answered and Allergies reviewed Anticoagulation/ Anti-thrombosis status confirmed? Yes Supplemental O2: room air Monitors: BP, continuous pluse ox and EKG Patient Condition: sedated, meaningful contact maintained throughout procedure Patient Sedated? Yes Sedation Agents: midazolam (VERSED) injection, 2 mg Procedure: Block Type: Spinal Prep: Betadine Sterile Field: mask, cap/hat, sterile established and sterile gloves Approach: midline Skin was localized? Yes Skin localized with: lidocaine (XYLOCAINE) 1 % injection, 1 mL Spinal Block: Needle Type: beveled Needle Gauge: 25 Needle Length: 90 mm Placement Site: L4-5 Number of Attempts: 1 CSF: free flow, aspiration before injection, aspiration during injection, aspiration after injection Local anesthetics used? No Degree of difficulty: none Procedure Tolerance: tolerated well Sensory Level: T8 Motor Blockade: Yes Position post procedure: supine Vital Signs: Vital sings monitored and stable throughout. See anesthesia record for details. Start Time: 02/11/2019 7:50 AM End Time: 02/11/2019 7:52 AM Total Time: 2 Staff: Anesthesia Provider: Billy Hernandez APRN-CRNA - performed the procedure Charisse Delacruz DO GENERAL ANESTHESIA O RDERABLES * EKG 12-LEAD (01/17/2019 10:35 AM CDT) Only the most recent of2 resultswithin the time period is included. Ventricular Rate 64 BPM [facility] Atrial Rate 64 BPM [facility] P-R Interval 142 ms [facility] QRS Duration ms 120 ms [facility] Q-T Interval ms 430 ms [facility] QTC Calculation (Bezet) 443 ms [facility] Calculated P Ernul 41 degrees [facility] Calculated T Ernul 30 degrees [facility] Interpretation EKG Normal sinus rhythm Low voltage QRS Right bundle branch block Abnormal ECG Confirmed by BALTA MARTINEZ MD ([id number]) on 01/17/2019 3:49:58 PM [facility] 01/17/2019 10:3 5 AM CDT 01/17/2019 3:49 PM CDT Charisse Alberto DO ECG ORDERABLES Performing Organization Address City/[facility]/ZIP Co de Phone Number [facility] * CULTURE MSSA/MRSA (01/17/2019 10:21 AM CDT) Only the most recent of3 resultswithin the time period is included. Pathologist [facility] Culture Negative for methicillin-resist ant Staphylococcus aureus (MRSA) CHIQUITA 01/20/2019 12:13 PM CDT [facility] Microbiology SPECIMEN FROM NASAL FOSSAE / Unknown Collection / Unknown 01/17/2019 10:21 AM CDT 01/17/2019 10:29 AM CDT Shirin Canales SERVICE OBSERVER CHIEF-WEB DEVELOPER PROGRAMMER LAB - MICR OBIOLOGY ORDERABLES Performing Organization Address [facility] Co de Phone Number [facility] [address] [place] [address], [facility] [phone] * (ABNORMAL) COMPREHENSIVE METABOLIC PANEL (01/17/2019 10:21 AM CDT) Only the most recent of3 resultswithin the time period is included. Glucose 103 74 - 106 mg/dL 01/17/2019 10:59 AM CDT [facility] Sodium 141 136 - 145 mmol/L 01/17/2019 10:59 AM CDT [facility] Potassium 3.9 3.5 - 5.1 mmol/L 01/17/2019 10:59 AM CDT [facility] Chloride 104 98 - 107 mmol/L 01/17/2019 10:59 AM CDT [facility] CO2 29 23 - 31 mmol/L 01/17/2019 10:59 AM CDT [facility] Calcium 10.1 8.4 - 10.2 mg/dL 01/17/2019 10:59 AM CDT [facility] Anion Gap 8 8 - 16 mmol/L 01/17/2019 10:59 AM CDT [facility] BUN 13 9.8 - 20.1 mg/dL 01/17/2019 10:59 AM CDT [facility] Creatinine 0.78 0.55 - 1.02 mg/dL 01/17/2019 10:59 AM CDT [facility] Alkaline Phosphatase 93 40 - 150 U/L 01/17/2019 10:59 AM CDT [facility] ALT 11(L) 13 - 61 U/L 01/17/2019 10:59 AM CDT [facility] AST 15 5 - 34 U/L 01/17/2019 10:59 AM CDT [facility] Protein Total 7.1 6.4 - 8.3 gm/dL 01/17/2019 10:59 AM CDT [facility] Albumin 4.2 3.2 - 4.6 gm/dL 01/17/2019 10:59 AM CDT [facility] Bilirubin Total 0.5 0.2 - 1.0 mg/dL 01/17/2019 10:59 AM CDT [facility] eGFR by MDRD >60 >60 mL/min/1.7 3m2 01/17/2019 10:59 AM CDT [facility] eGFR by MDRD >60 >60 mL/min/1.7 3m2 01/17/2019 10:59 AM CDT [facility] Blood BLOOD SPECIMEN / Unknown Venipuncture / Unknown 01/17/2019 10:21 AM CDT 01/17/2019 10:30 AM CDT Shirin Canales SERVICE OBSERVER CHIEF-WEB DEVELOPER PROGRAMMER LAB - CHEM ISTRY ORDERABLES [facility] [address] [place] [address] * XR KNEE 3 VW LEFT (10/25/2012 12:16 PM CDT) Only the most recent of2 resultswithin the time period is included. Anatomical Region Laterality Modality Lower Extremity Radiographic Iman ging Narrative 10/25/2012 12:28 PM CDT Lakshmi Weiss 10/25/2012 12:28 PM See progress notes for results Procedure Note Lakshmi Weiss - 10/25/2012 12:28 PM CDT See progress notes for results Pancho Hatfield MD DIAGNOSTIC IMAGING O RDERABLES * XR KNEE 3 VW RIGHT (04/09/2012 1:23 PM PATIENT ASSESSMENT COORDINATOR) Only the most recent of2 resultswithin the time period is included. Anatomical Region Laterality Modality Lower Extremity Other Narrative 04/09/2012 1:23 PM PATIENT ASSESSMENT COORDINATOR Kalyani OrtizRT 04/09/2012 1:23 PM See progress notes for results Procedure Note Kalyani Ortiz, RT - 04/09/2012 1:23 PM CST See progress notes for results Pancho Hatfield MD DIAGNOSTIC IMAGING O RDERABLES * IP CONSULT TO HOME CARE (10/29/2011 8:27 AM CDT) Narrative Nia Walker LPN - 10/29/2011 8:27 AM CDT Nia Walker LPN 10/29/2011 8:27 AM Home care consult noted. Patient has been set up with [facility] [phone] per choice. All information and orders have been faxed to them at [phone]. Thank you for the referral Aimee Walker LPN Security Trainer Procedure Note Nia Walker LPN - 10/29/2011 8:25 AM CDT Home care consult noted. Patient has been set up with [facility] [phone] per choice. All information and orders have beenfaxed to them at [phone]. Thank you for the referral Aimee Walker LPN Security Trainer Pancho Hatfield MD INPATIENT ANCILLARY CONSULT * IP CONSULT TO HOSPITALIST (10/26/2011 3:02 PM CDT) Only the most recent of2 resultswithin the time period is included. Narrative Herbert Sanchez MD - 10/26/2011 3:02 PM CDT Herbert Sanchez MD 10/26/2011 3:02 PM Initial Hospitalist Consult Note Date of Consult: 10/26/2011 Patient's Primary Care Physician: Jose Antonio Engel MD Physician Requesting Consult: Pancho Hatfield MD Reason for Consultation: Evaluation of patient's medical problems, which include dyslipedemia Name: Tiara Heaton Age: 56 y.o. Sex: female Chief Complaint/History of Present Illness Patient is , a 56 y.o. female, who has been admitted to [facility] after a successful Left Total Knee Arthroplasty with the Mini-Subvastus Approach, under Spinal anaesthesia. left knee is symptomatic for over several years, aggravated with activity. Radiographs show severe DJD of the left knee. Patient is failing conservative management. Patient is is awake and alert. No complains of nausea or vomiting, chest pain or shortness of breath. No recent fevers or chills. No headache or blurred vision. No numbness or tingling in extremities. No weight gain or loss. No falls, seizures or loss of consciousness . No cough with expectoration. No diplopia, tinnitus. No abdominal pain. 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 Social History Occupational History Not on file. Social History Main Topics Smoking status: Never Smoker Smokeless tobacco: Never Used Alcohol Use: No Drug Use: No Sexually Active: Not on file Prescriptions prior to admission Medication Sig Dispense Refill meloxicam (MOBIC) 15 MG tablet Take 15 mg by mouth once daily. mupirocin calcium (BACTROBAN NASAL) 2 % ointment Use 0.5 g as instructed 2 times daily. Apply into affected nostril(s) twice daily. mometasone (NASONEX) 50 MCG/ACT nasal spray [place] 1 [place] into each nostril 2 times daily. estradiol (ESTRACE) 1 MG tablet Take 1 mg by mouth once daily after breakfast. progesterone micronized (PROMETRIUM) 100 MG capsule Take 100 mg by mouth once daily after breakfast. simvastatin (ZOCOR) 20 MG tablet Take 20 mg by mouth daily before dinner. lansoprazole, disintegrating, (PREVACID SOLUTAB) 15 MG tablet Take 15 mg by mouth as needed. erythromycin base EC (MICHELLE-TAB) 333 MG tablet Take 1 Tab by mouth 3 times daily. Take 1 pill 3 times daily on the day of dental appointment and again the day after dental appointment 18 Tab 2 calcium-vitamin D (CALTRATE PLUS D) 600-200 MG-UNIT tablet Take 1 Tab by mouth 2 times daily. multivitamin daily (THERAGRAN) tablet Take 1 Tab by mouth daily with food. Allergies Allergen Reactions Celebrex (Celecoxib) Rash Penicillins Rash Sulfa Drugs Rash Review of Systems A review of systems was negative except as described in HPI. Exam Vitals: 10/26/11 1315 10/26/11 1330 10/26/11 1345 10/26/11 1415 BP: 114/59 111/43 118/68 102/64 Pulse: 59 63 60 59 Temp: 98.2 F 98.6 F Resp: Weight: SpO2: 96% 95% 98% 98% General appearance: alert, cooperative, no distress Heart: regular rhythm, normal S1 and S2, without murmurs, rubs or gallops Lungs: breath sounds normal and symmetric; no rales or wheezes Abdomen: soft without mass, non-tender, with normal bowel sounds Extremities: no clubbing, cyanosis or edema RANCH RIDER. Alert and oriented x 3. No facial assymetry, clear speech. No focal motor deficts Data I have reviewed the patient's labs and the review is significant for: Component Name 09/20/11 1040 04/15/11 0500 04/14/11 0220 03/15/11 1105 WBC 10.7 -- -- 10.1 HGB 12.9 9.9* 11.7* -- HCT 39.6 30.2* 35.3* -- PLTCOUNT 309 -- -- 278 Component Name 09/20/11 1040 03/15/11 1105 SODIUM 137 140 POTASSIUM 4.2 3.8 CHLORIDE 102 105 CO2 29 29 BUN 16 14 CREATININE 0.79 0.67 GLUCOSE 94 101 CALCIUM 9.6 9.7 Assessment and Plan Records available in chart ( paper and electronic) were reviewed. Home medications were reviewed 1. Post-op Day Hospital Day: 0 Follow post op orders.Initiate PT per protocol DVT prophylaxis to continue with SCD and chemoprophylaxis per surgeon preference -lovenox GI prophylaxis to continue with H2 blockers or Proton Pump inhibitors Encourage incentive spirometry at bedside. 2. GERD . Asymptomatic. Continue proton pump inhibitor 3. Dyslipidemia. Continue statins Treatment plan discussed with patient at bedside. All questions were answered. Orders placed in chart. CC: Jose Antonio Engel MD, Pancho Hatfield MD Procedure Note Herbert Sanchez MD - 10/26/2011 2:55 PM CDT Initial Hospitalist Consult Note Date of Consult: 10/26/2011 Patient's Primary Care Physician: Jose Antonio Engel MD Physician Requesting Consult: Pancho Hatfield MD Reason for Consultation: Evaluation of patient's medical problems, whichinclude dyslipedemia Name: Tiara Heaton Age: 56 y.o. Sex: female Chief Complaint/History of Present Illness Patient is , a 56 y.o. female, who [facility] successful [facility] Total Knee Arthroplasty with theMini-Subvastus Approach, under Spinal anaesthesia. 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 Patient is failingconservative management. Patient is is awake and alert. No complains of nausea or vomiting, chestpain or shortness of breath. No recent fevers or chills. No headache orblurred vision. No numbness or tingling in extremities. No weight gain orloss. No falls, seizures or loss of consciousness . No cough withexpectoration. No diplopia, tinnitus. No abdominal pain. Past Medical History Diagnosis Date GERD (gastroesophageal reflux disease) Pure hypercholesterolemia MSSA (methicillin-susceptible Staphylococcus aureus) ssxhxiydeyua12/12/11 Screen (nasal) txd w/mupirocin Snoring Past Surgical History Procedure Date section 1988 General surgery procedure 1993-right TO DEBRIDE ANKLE INCISION--STAPH General surgery procedure 2006 UTERINE ABLATION Hc orif ankle 2007 RIGHT General surgery procedure 2009 TVT Knee replacement 04/13/11 Right Knee replacement 10/26/2011 Right No family history on file. Social History Occupational History Not on file. Social History Main Topics Smoking status: Never Smoker Smokeless tobacco: Never Used Alcohol Use: No Drug Use: No Sexually Active: Not on file Prescriptions prior to admission Medication Sig Dispense Refill meloxicam (MOBIC) 15 MG tablet Take 15 mg by mouth once daily. mupirocin calcium (BACTROBAN NASAL) 2 % ointment Use 0.5 g as instructed2 times daily. Apply into affected nostril(s) twice daily. mometasone (NASONEX) 50 MCG/ACT nasal spray [place] 1 [place] into eachnostril 2 times daily. estradiol (ESTRACE) 1 MG tablet Take 1 mg by mouth once daily afterbreakfast. progesterone micronized (PROMETRIUM) 100 MG capsule Take 100 mg by mouthonce daily after breakfast. simvastatin (ZOCOR) 20 MG tablet Take 20 mg by mouth daily beforedinner. lansoprazole, disintegrating, (PREVACID SOLUTAB) 15 MG tablet Take 15 mgby mouth as needed. erythromycin base EC (MICHELLE-TAB) 333 MG tablet Take 1 Tab by mouth 3 timesdaily. Take 1 pill 3 times daily on the day of dental appointment andagain the day after dental appointment 18 Tab 2 calcium-vitamin D (CALTRATE PLUS D) 600-200 MG-UNIT tablet Take 1 Tab bymouth 2 times daily. multivitamin daily (THERAGRAN) tablet Take 1 Tab by mouth daily withfood. Allergies Allergen Reactions Celebrex (Celecoxib) Rash Penicillins Rash Sulfa Drugs Rash Review of Systems A review of systems was negative except as described in HPI. Exam Vitals: 10/26/11 1315 10/26/11 1330 10/26/11 1345 10/26/11 1415 BP: 114/59 111/43 118/68 102/64 Pulse: 59 63 60 59 Temp: 98.2 F 98.6 F Resp: 16 16 18 18 Weight: SpO2: 96% 95% 98% 98% General appearance: alert, cooperative, no distress Heart: regular rhythm, normal S1 and S2, without murmurs, rubs orgallops Lungs: breath sounds normal and symmetric; no rales or wheezes Abdomen: soft without mass, non-tender, with normal bowel sounds Extremities: no clubbing, cyanosis or edema RANCH RIDER. Alert and oriented x 3. No facial assymetry, clear speech. No focalmotor deficts Data I have reviewed the patient's labs and the review is significant for: Component Name 09/20/11 1040 04/15/11 0500 04/14/11 0220 03/15/11 1105 WBC 10.7 -- -- 10.1 HGB 12.9 9.9* 11.7* -- HCT 39.6 30.2* 35.3* -- PLTCOUNT 309 -- -- 278 Component Name 09/20/11 1040 03/15/11 1105 SODIUM 137 140 POTASSIUM 4.2 3.8 CHLORIDE 102 105 CO2 29 29 BUN 16 14 CREATININE 0.79 0.67 GLUCOSE 94 101 CALCIUM 9.6 9.7 Assessment and Plan Records available in chart ( paper and electronic) were reviewed. Home medications were reviewed 1. Post-op Day Hospital Day: 0 Follow post op orders.Initiate PT per protocol DVT prophylaxis to continue with SCD and chemoprophylaxis per surgeonpreference -lovenox GI prophylaxis to continue with H2 blockers or Proton Pump inhibitors Encourage incentive spirometry at bedside. 2. GERD . Asymptomatic. Continue proton pump inhibitor 3. Dyslipidemia. Continue statins Treatment plan discussed with patient at bedside. All questions wereanswered. Orders placed in chart. CC: Jose Antonio Engel MD, Pancho Hatfield MD Pancho Hatfield MD INPATIENT CONSULT OR DERABLES * CARDIAC EKG ORDER (04/18/2011 5:57 PM PATIENT ASSESSMENT COORDINATOR) Only the most recent of2 resultswithin the time period is included. Narrative Transcriptions Document, Scanned - 04/18/2011 5:57 PM CST Scanned Document [facility] Care Teams Industrial Technologist Relationship Specialty Start Date End Date Pancho Hatfield MD Orthopedic Surgery 05/03/11 [place] [address] [address] [place] [address] Orthopedic Surgery 01/06/19
== END 2024-07-18 11:32 | disposition home or self-care (01) ==
PROVIDERS: PCP Internal Medicine
DX: N20.0 Calculus of kidney (principal)
CPT/HCPCS: 74018

== ENCOUNTER 2025-01-15 15:28 | Outpatient (CLI) | payer MEDICARE, SELFPAY ==
--- NOTE | ~2025-01-15 | MM_ITS ---
EXAMINATION: MM screening esther BI w mary HISTORY: Screening TECHNIQUE: Craniocaudal and mediolateral oblique 3-D tomosynthesis images were obtained and synthetic 2-D images were generated. CAD analysis was submitted and interpreted. COMPARISON: No prior mammogram is available for comparison at this institution. BREAST PARENCHYMAL COMPOSITION: Not dense: There are scattered areas of fibroglandular density. FINDINGS: There is no evidence of suspicious mass, calcification, or architectural distortion to sugg est malignancy in either breast. There has been no suspicious interval change. IMPRESSION: 1. No mammographic evidence of malignancy. 2. Recommend routine screening mammography in one year. BI-RADS Category 1: Negative Reviewed, dictated and finalized at location A.
--- OUTSIDE RECORDS SUMMARY | 2025-01-15 15:32 | XMS_ITS | Encounter Summary ---
Author Organization [facility] Healthcare Address [address] [place] [address] Care Team Providers Care Playground Worker Name Role Phone Lyudmila Shaw MD Primary Care Provide r Yrn Bashir MD Unavailable [phone] Sherly De Jesus MD Unavailable [phone] Encounter Details Date Type Department Care Team (Late st Contact Info) Description 04/12/2020 Telephone [facility] - Interventional Radiology [address] [place] [address] Ernestina Moran RN Social History Tobacco Use Types Packs/Day Years Used Date Smoking Tobacco: Never Smokeless Tobacco: Never Alcohol Use Standard Drinks/Week Comments Not Currently 0 (1 standard drink = 0.6 oz pur e alcohol) Social Connection and Isolation Panel Answer Date Recorded Frequency of Communication with Friends and Fami ly Not on file 11/12/2019 Frequency of Social Gatherings with Friends and Family Not on file 11/12/2019 Attends Sabianist Services Not on file 11/11 Active Member [...] on file 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 Gender Identity Female 09/04/2020 8:26 AM CDT Sexual Orientation Not on file documented as of this encounter Plan of Treatment Not on file documented as of this encounter Visit Diagnoses Not on filedocumented in this encounter Care Teams Playground Worker Relationship Specialty Start Date End Date Lyudmila Shaw MD [address] [facility] [address] [place] [address] PCP - General 06/17/18 Yrn Bashir MD [address] [facility] [address] [place] [address] Consulting Physician Gastroenterology 04/15/20 Sherly De Jesus MD [address] [facility] [address] [place] [address] Consulting Physician Urology 04/15/20 documented as of this encounter
--- OUTSIDE RECORDS SUMMARY | 2025-01-15 15:32 | XMS_ITS | Encounter Summary ---
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 Gender Identity Female 09/04/2020 8:26 AM CDT Sexual Orientation Not on file documented as of this encounter Plan of Treatment Not on file documented as of this encounter Visit Diagnoses Not on filedocumented in this encounter Care Teams Channel Director Relationship Specialty Start Date End Date Lyudmila Shaw MD [address] [address] PCP - General 06/17/18 Yrn Bashir MD [address] [address] Consulting Physician Gastroenterology 04/15/20 Sherly De Jesus MD [address] [address] Consulting Physician Urology 04/15/20 documented as of this encounter
--- OUTSIDE RECORDS SUMMARY | 2025-01-15 15:32 | XMS_ITS | Encounter Summary ---
Author Organization [facility] Address [address] [facility] [place] [address] Care Team Providers Care Linux Unix Engineer Name Role Phone Pancho Hatfield MD Unavailable [phone] Enedelia LAMBERT MD, Frank Unavailable [phone] Encounter Details Date Type Department Care Team (Late st Contact Info) Description 02/22/2023 Lab Requisition [facility] - DermPath Lab [address] [facility], [place] [id number] Casey Forrester MD [address] [place] [address] Social History Tobacco Use Types Packs/Day Years Used Date Smoking Tobacco: Never Smokeless Tobacco: Never Alcohol Use Standard Drinks/Week Comments No 0 (1 standard drink = 0.6 oz pur e alcohol) Comments No Sex and Gender Information Value Date Recorded Sex Assigned at Female 06/13/2021 9:49 AM EXPERIMENTAL MACHINING LAB MANAGER Legal Sex Female 12:12 PM EXPERIMENTAL MACHINING LAB MANAGER Gender Identity Female 06/13/2021 9:49 AM EXPERIMENTAL MACHINING LAB MANAGER Sexual Orientation Not on file documented as of this encounter Functional Status * Is person deaf or have serious hearing difficulty? Answer Date of Assessment Author No 04/01/2021 10:51 AM Ernestina Peoples * Is person blind or have serious difficulty seeing? Answer Date of Assessment Author No 04/01/2021 10:51 AM Ernestina Peoples * Does person have serious difficulty walking/climbing stairs? Answer Date of Assessment Author No 04/01/2021 10:51 AM CDT Ernestina Aguila * Does person have difficulty dressing/bathing? Answer Date of Assessment Author No 04/01/2021 10:51 AM CDT Ernestina Aguila * Does person have difficulty doing errands alone? Answer Date of Assessment Author No 04/01/2021 10:51 AM CDT Ernestina Aguila documented as of this encounter Mental Status * Does person have difficulty concentrating/remembering/making decisions? Answer Entry Date Author No 04/01/2021 10:51 AM CDT Ernestina Aguila documented in this encounter Plan of Treatment Not on file documented as of this encounter Procedures Procedure Name Priority Date/Time Associated Diagnosis Comments DERMATOPATHOLOGY Routine 02/21/2023 12:0 0 AM CDT documented in this encounter Results * DERMATOPATHOLOGY (02/21/2023 12:00 AM CDT) Case Report Dermatopathology Report Case: [id number] Authorizing Provider: Casey Forrester MD Collected: 02/21/2023 12:00 AM Ordering Location: [facility] DermPath Lab Received: 02/22/2023 01:13 PM Pathologist: Heather Padron MD Specimen: Skin, left lower back 3 1:45 PM CDT DERMATOPATHOLOGY LABORATORY Final Diagnosis Specimen A. SKIN, left lower back: LICHEN PLANUS-LIKE KERATOSIS (BENIGN LICHENOID KERATOSIS) (L82.1) 3 1:45 PM CDT DERMATOPATHOLOGY LABORATORY at 1345 CDT Clinical History R/O ISK vs BCC 3 1:45 PM CDT DERMATOPATHOLOGY LABORATORY Gross Description Specimen A: Received is one formalin filled container labeled with the patient's name and designated left lower back. The specimen consists of a shave biopsy measuring 10x8x1 mm. Jar 0. 3 1:45 PM CDT DERMATOPATHOLOGY LABORATORY Microscopic Description Specimen A. SKIN, left lower back: The epidermis is mildly acanthotic. There is a lichenoid infiltrate with vacuolar changes of basilar keratinocytes and scattered necrotic keratinocytes. 3 1:45 PM CDT DERMATOPATHOLOGY LABORATORY Disclaimer An external and internal positive and negative controls are appropriate for the histochemical, immunohistochemical and immunofluorescence stain(s) in this case (if any), except where stated explicitly. The performance characteristics of the stain(s) cited in this report were developed and its performance characteristic determined by the Dermatopathology Laboratory at [facility], directed by Dr. Kathryn Burton. These tests need not be, and therefore are not, approved by the [place] Food and Drug Administration. The tests are used for clinical purposes. Billing Codes Specimen Charges Stain Charges 34915 1 3 1:45 PM CDT DERMATOPATHOLOGY LABORATORY Embedded Images 3 1:45 PM CDT DERMATOPATHOLOGY LABORATORY Pathology/Cytolog y TISSUE SPECIMEN FROM SKIN / Unknown 02/21/2023 02/22/2023 1:13 PM CDT Casey Forrester MD LAB - PATHOLOGY/CYTOLOGY ORD ERABLES Final Result DERMATOPATHOLOGY LABORATORY [facility] - Department of Dermatology [facility] Medicine [address] [place] [address], [address] [phone] documented in this encounter Visit Diagnoses Not on filedocumented in this encounter Care Teams Linux Unix Engineer Relationship Specialty Start Date End Date Pancho Hatfield MD Orthopedic Surgery 05/03/11 [place] [address] [address] [address] Orthopedic Surgery 01/06/19 documented as of this encounter
--- OUTSIDE RECORDS SUMMARY | 2025-01-15 15:32 | XMS_ITS | Encounter Summary ---
Author Organization [facility] Healthcare Address [address] [place] [address] Care Team Providers Care Floorhand Name Role Phone Lyudmila Shaw MD Primary Care Provide r Yrn Bashir MD Unavailable [phone] Sherly De Jesus MD Unavailable [phone] Encounter Details Date Type Department Care Team (Late st Contact Info) Description 06/09/2020 Telephone [facility] - Imaging [address] [place] [address] Transcribed Order, Provider Social History [...] and Family Not on file 11/12/2019 Attends Cheondoism Services Not on file 11/11 Active Member [...] on file 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 Gender Identity Female 09/04/2020 8:26 AM CDT Sexual Orientation Not on file documented as of this encounter Plan of Treatment Not on file documented as of this encounter Visit Diagnoses Not on filedocumented in this encounter Care Teams Floorhand Relationship Specialty Start Date End Date Lyudmila Shaw MD [address] [facility] [address] [place] [address] PCP - General 06/17/18 Yrn Bashir MD [address] [facility] [address] [place] [address] Consulting Physician Gastroenterology 04/15/20 Sherly De Jesus MD [address] [facility] [address] [place] [address] Consulting Physician Urology 04/15/20 documented as of this encounter
--- OUTSIDE RECORDS SUMMARY | 2025-01-15 15:32 | XMS_ITS | Encounter Summary ---
Author Organization [facility] Healthcare Address [address] [place] [address] Care Team Providers Care Memory Care Director Name Role Phone Lyudmila Shaw MD Primary Care Provide r Yrn Bashir MD Unavailable Sherly De Jesus MD Unavailable [phone] Encounter Details Date Type Department Care Team (Late st Contact Info) Description 07/19/2020 Telephone [facility] - Interventional Radiology [address] [place] [address] Geena Hernadez RN Social History [...] and Family Not on file 11/12/2019 Attends Druze Services Not on file 11/11 Active Member [...] on file Legal Sex Female 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 [address] [place] [address] Consulting Physician Gastroenterology 04/15/20 Sherly De Jesus MD [address] [facility] [address] [place] [address] Consulting Physician Urology 04/15/20 documented as of this encounter
--- OUTSIDE RECORDS SUMMARY | 2025-01-15 15:32 | XMS_ITS | Encounter Summary ---
Author Organization [facility] Healthcare Address [address] [place] [address] Care Team Providers Care Director Of Corporate Responsibility Name Role Phone Lyudmila Shaw MD Primary Care Provide r Yrn Bashir MD Unavailable Sherly De Jesus MD Unavailable [phone] Encounter Details Date Type Department Care Team (Late st Contact Info) Description 08/27/2020 Telephone [facility] - Imaging [address] [place] [address] Transcribed Order, Provider Social History [...] and Family Not on file 11/12/2019 Attends Orthodox Services Not on file 11/11 Active Member [...] Average Number of Drinks Not on file 03/09/2 021 Frequency of Binge Drinking Not on [...] on file Legal 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 Gender Identity Female 09/04/2020 8:26 AM CDT Sexual Orientation Not on file documented as of this encounter Plan of Treatment Not on file documented as of this encounter Visit Diagnoses Not on filedocumented in this encounter Care Teams Director Of Corporate Responsibility Relationship Specialty Start Date End Date Lyudmila Shaw MD [address] [address] PCP - General 06/17/18 Yrn Bashir MD [address] [address] Consulting Physician Gastroenterology 04/15/20 Sherly De Jesus MD [address] [address] Consulting Physician Urology 04/15/20 documented as of this encounter
--- OUTSIDE RECORDS SUMMARY | 2025-01-15 15:32 | XMS_ITS | Clinical Summary ---
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 Overview (04/13/2020): Added automatically from request for surgery [id number] Resolved Problems Problem Noted Date Diagnosed Date Resolved Date Uterine prolapse 12/11/2019 04/05/2020 Generalized abdominal pain 11/12/2019 1 06/05/2019 Immunizations Immunization Administration Dates Next Due Influenza, Quadrivalent, Hig h Dose, Preservative Free, Intrr 04/13/2020 Surgical History Surgery Date Site/Laterality Comments FL DILATION & CURETTAGE DX&/THER NONOBSTETRIC FL ARTHROPLASTY KNEE TIBIAL PLATEAU Knee Replacement - (Added by TW Conv) FL UNLISTED PROCEDURE DENTOALVEOLAR STRUCTURES Oral Surgery Tooth Extraction - (Added by TW Conv) FL HYSTEROSCOPY ENDOMETRIAL ABLATION SECTION TOTAL HIP ARTHROPLASTY [...] on file Legal Sex Female 3:46 AM PROPERTY ASSISTANT Gender Identity Female 09/04/2020 8:26 AM CDT [...] 9:58 AM CDT Height 162.6 cm (5' 4) 09/27/2020 9:58 AM CDT Body Mass Index 27.46 09/27/2020 9:58 AM CDT Plan of Treatment Not on file Medical Devices Implanted Type Area Refining Equipment Operator Device Identifier Shelf Expiration Date Model / Serial / Lot Left Knee Replacement Left: Knee Left Hip Replacement Left: Hip Right Knee Replacement Right: Knee [employer] [id number] Amplatz 8.5fr 26cm 6 Sideport Introducer Catheter String - [id number] Implanted:Qty: 1 on 08/11/2020 at [facility] [employer] [id number] / / Explanted Type Area Refining Equipment Operator Device Identifier Shelf Expiration Date Model / Serial / Lot SuccessTSM Medical Inc [id number] Tran Flexi-Stent 4fr 2cm Small Pigtail Straight Flexible .025 - [id number] Explanted:Qty: 1 on 04/14/2020 by Bossman Pickering MD at [facility] N/A: Pancreas [employer] 12/01/2024 [id number] / / [id number] [employer] [id number] Cotton-Farias 7fr 10cm Taper Tip Guidewire Proximal Distal Flap - [id number] Implanted:Qty: 1 on 04/14/2020 by Bossman Pickering MD at [facility] Explanted:Qty: 1 on 05/10/2020 by Yrn Bashir MD at [facility] N/A: Bile Duct [employer] 09/22/2020 [id number] / / [id number] [employer] Oral 400-171 C-Flex 6fr 70cm Taper Tip 1 Lumen Injection Hub Radiopaque Latex Free - [id number] Explanted:Qty: 1 on 08/10/2020 at [facility] [employer] Oral [id number] / / Description:Item documented as one time supply on supply screen by RN. Item listed in EPIC under implant screen, so nursing consultant entered on implant screen as implanted/explanted for charging, and left supply screen items as non-chargeable. Insurance MEDICARE Member Subscriber Plan / Payer (Ef fective 2018-Present) Name:Hamida Christie Member ID:[id number] Relation to Subscriber:Self Name:Hamida Christie Subscriber ID:[id number] Payer ID:[id number] Group ID:Not on file Type:MEDICARE TRADITIONAL Address: [address] [address] AAR MEDICARE Member Subscriber Plan / Payer ( fective 2018-) Name:Hamida Christie Member ID:[id number] Relation to Subscriber:Self Name:Sudarshan Hamida Marie Subscriber ID:[id number] Payer ID:[id number] Group ID:Not on file Type:MEDICARE TRADITIONAL Address: [place] [phone] [facility] MEDICARE AARP Advance Directives For more information, please contact: [phone] * Full Code (Latest Code Status on File) Date Activated Date Inactivated Comments 09/27/2020 10:03 AM 09/27/2020 5:23 PM * Full Code Date Activated Date Inactivated Comments 08/11/2020 4:39 PM 08/12/2020 2:22 PM * Full Code Date Activated Date Inactivated Comments 08/10/2020 4:33 PM 08/11/2020 4:39 PM * Full Code Date Activated Date Inactivated Comments 04/13/2020 1:26 PM 04/15/2020 10:09 PM Care Teams National Insurance Officer Relationship Specialty Start Date End Date Lyudmila Shaw MD [address] [facility] [address] [place] [address] PCP - General 06/17/18 Yrn Bashir MD [address] [facility] [address] [place] [address] Consulting Physician Gastroenterology 04/15/20 Sherly De Jesus MD [address] [facility] [address] [place] [address] Consulting Physician Urology 04/15/20
--- OUTSIDE RECORDS SUMMARY | 2025-01-15 15:32 | XMS_ITS | Encounter Summary ---
Author Organization [facility] [employer] [facility] Address [address] [place] [address] Phone Care Team Providers Care Supervisor Accounts Receivable Name Role Phone Roxanne Somers NP Primary Care Provider [phone] Lyudmila Shaw MD Primary Care Provide r Yrn Bashir MD Unavailable [phone] Sherly De Jesus MD Unavailable [phone] Encounter Details Date Type Department Care Team (Latest Contact Info) Description 05/11/2017 Orders Only [facility] CONVERSION Scanning, Provider Social History Tobacco Use Types Packs/Day Years Used Date Smoking Tobacco: Never Comments Unknown Sex and Gender Information Value Date Recorded Sex Assigned at Not on file Legal Sex Female 3:46 AM PUBLIC RELATIONS WRITER Gender Identity Female 09/04/2020 8:26 AM CDT Sexual Orientation Not on file documented as of this encounter Plan of Treatment Not on file documented as of this encounter Procedures Procedure Name Priority Date/Time Associated Diagnosis Comments OBSTETRIC/GYNECOLOGY ULTRASONOGRAPHY REPORT 05/11/2017 1:30 PM PUBLIC RELATIONS WRITER documented in this encounter Results * OBSTETRIC/GYNECOLOGY ULTRASONOGRAPHY REPORT (05/11/2017 1:30 PM PUBLIC RELATIONS WRITER) Anatomical Region Laterality Modality Ultrasound us Provider Scanning IMG OB US PROCEDURES Final Res ult documented in this encounter Visit Diagnoses Not on filedocumented in this encounter Care Teams Supervisor Accounts Receivable Relationship Specialty Start Date End Date Roxanne Somers NP PCP - General 08/18/16 06/16/18 Lyudmila Shaw MD [address] [facility] [address] [place] [address] PCP - General 06/17/18 Yrn Bashir MD [address] [id number] Consulting Physician Gastroenterology 04/15/20 Sherly De Jesus MD [address] [id number] Consulting Physician Urology 04/15/20 documented as of this encounter
--- OUTSIDE RECORDS SUMMARY | 2025-01-15 15:32 | XMS_ITS | Encounter Summary ---
Author Organization [facility] Healthcare Address [address] [place] [address] Care Team Providers Care Rugby League Footballer Name Role Phone Lyudmila Shaw MD Primary Care Provide r Yrn Bashir MD Unavailable [phone] Sherly De Jesus MD Unavailable [phone] Encounter Details Date Type Department Care Team (Late st Contact Info) Description 07/20/2020 Telephone [facility] - Interventional Radiology [address] [place] [address] Geena Hernadez RN Social History [...] on file Legal Sex Female 3:46 AM SHEAR SETTER Gender Identity Female 09/04/2020 8:26 AM CDT Sexual Orientation Not on file documented as of this encounter Plan of Treatment Not on file documented as of this encounter Visit Diagnoses Not on filedocumented in this encounter Care Teams Rugby League Footballer Relationship Specialty Start Date End Date Lyudmila Shaw MD [address] [facility] 15 [place] [address] PCP - General 06/17/18 Yrn Bashir MD [address] [facility] [address] [place] [address] Consulting Physician Gastroenterology 04/15/20 Sherly De Jesus MD [address] [place] [address] Consulting Physician Urology 04/15/20 documented as of this encounter
--- OUTSIDE RECORDS SUMMARY | 2025-01-15 15:32 | XMS_ITS | Clinical Summary ---
Author Organization [facility] Address [address] [place] [address] Phone Care Team Providers Care Laboratory Tester Name Role Phone Randi Shaw MD Primary Care Provider [phone] Allergies Active Allergy Reactions Criticality Noted Date Comments Celecoxib Rash High 02/13/2011 Nitrofurantoin nausea,Nausea And Vomiting,Vomiting High 08/10/2020 Penicillins Rash High 02/13/2011 1997 Sulfa Antibiotics Rash High 03/15/2011 Medications simvastatin (ZOCOR) 40 MG tablet Take 40 [...] mouth 1 (one) time each day Active hydroCHLOROthiaz luiz 12.5 MG tablet TAKE 1 TABLET(12.5 MG) BY MOUTH 1 TIME EACH DAY 90 tablet 3 04/15/2024 Active Active Problems No known active problems Immunizations Immunization Administration Dates Next Due Influenza Split High Dose Preservative Free IM 03/20/2017 Influenza TIV (IM) 04/13/2020,02/14/2019 Influenza, Injectable, Quadr ivalent, Preservative Free 02/13/2019 Influenza, Unspecified 03/23/2023,2021,03/16/2021,2019,04/24/2018 Moderna Sars-cov-2 Vaccination 08/25/2020 Pfizer Sars-cov-2 Vaccination 04/06/2022, 022,07/30/2020 Pneumococcal Conjugate 05/04/2019 Pneumococcal Conjugate 13-Valent 04/29/2018 Social History Tobacco Use Types Packs/Day Years Used Date Smoking Tobacco: Unknown Tobacco Cessation:Counseling Given: Not Answered Comments Unknown Sex and Gender Information Value Date Recorded Sex Assigned at Not on file Legal Sex Female 10:00 AM MDT Gender Identity Not on file Sexual Orientation Not on file Last Filed Vital Signs Vital Sign Reading Time Taken Comments Blood Pressure 111/71 08/12/2024 11:38 AM CDT Pulse 54 08/12/2024 11:38 AM CDT Temperature - - Respiratory Rate - - Oxygen Saturation - - Inhaled Oxygen Concentration - - Weight 77.1 kg (170 lb) 08/12/2024 11:38 AM CDT Height 162.6 cm (5' 4) 08/12/2024 11:38 AM CDT Body Mass Index 29.18 08/12/2024 11:38 AM CDT Plan of Treatment Upcoming Encounters Date Type Department Care Team (Late st Contact Info) Description 08/13/2025 11:00 AM CDT Office Visit [facility] [address] [facility] [address] [place] [address] Ramesh Duarte PA [address] [address] 04/27/2026 11:00 AM CONDUCTOR AND ENGINEER Office Visit [facility] [address] [facility] [address] [place] [address] Jamie Armendariz MD [address] [facility] [address] [place] [address] Health Maintenance Due Date Last Done Comments Pneumococcal PPSV23/PCV13 65 + Years / High and Highest Risk (2 of 4 - PPSV23, PCV20, or PCV21) 06/24/2018 04/29/2018 COVID-19 Vaccine (2023-2 5 season) 2024 04/06/2022, 10/10/2021, 08/25/2020, Additional history exists Influenza Vaccine (#1) 2025 3, 03/16/2022, 03/16/2021, Additional history exists Insurance MEDICARE [facility] Care Teams Laboratory Tester Relationship Specialty Start Date End Date Randi Shaw MD [facility] [place] [address] PCP - General Family Medicine 05/17/22
--- OUTSIDE RECORDS SUMMARY | 2025-01-15 15:32 | XMS_ITS | Clinical Summary ---
Author Organization [facility] Address [address] [place] [address] Care Team Providers Care Biometric Screener Name Role Phone Pancho Hatfield MD Unavailable [phone] Enedelia LAMBERT MD, Frank Unavailable [phone] Source Comments [facility],non-owned Affiliates and Associated Physician Practices is amultiple site organization consisting of ambulatory clinics and hospital sitesin [place], [place], [place] and [place]. This disclosure is being madepursuant to the Care Everywhere program and may not contain all information available regarding this patient. Last updated 18.[facility] Allergies Active Allergy Reactions Criticality Noted Date Comments Celecoxib Rash Medium 03/15/2011 Nitrofurantoin Nausea and/or Vomiting 1 Penicillins Rash Low 03/15/2011 Sulfa Drugs Rash Low 03/15/2011 Medications * Be aware that medications may not be up to date on this document. Alwaysverify current medications with the patient. calcium-vitamin D (CALTRATE PLUS D) 600-200 MG-UNIT tablet Take 1 Tab by mouth 2 times daily. Active multivitamin daily (THERAGRAN) tablet Take 1 Tab by mouth daily with food. Active Probiotic Product (ALIGN PO) Take by mouth every 2 days Active clindamycin (CLEOCIN) 300 MG capsuleIndicati ons:Status post total replacement of left hip Take 2 capsules by mouth once as needed (Dental Prophylaxis) 2 tablets one hour before dental work. 6 capsule 9 Active Additional Information Patient not taking.Reported on [...] once daily as needed for Constipation Active HYDROcodone-ar taminophen (NORCO) 10-325 MG tablet Take 0.5 (one-half) tablet to 1 (one) tablet by mouth every 6 hours as needed for Pain 28 tablet 1 Active meloxicam (MOBIC) 15 MG tablet TAKE 1 TABLET BY MOUTH EVERY DAY 21 tablet 1 Active Active Problems Problem Noted Date Diagnosed Date Arthralgia of hip 02/11/2019 Knee joint replacement by other means 11/16/2011 DJD (degenerative joint disease) 10/26/2011 Immunizations Immunization Administration Dates Next Due INFLUENZA VACCINE, QUADR. [...] Sex Assigned at Female 06/13/2021 9:49 AM WAREHOUSE DISTRIBUTION ASSOCIATE Legal Sex Female 12:12 PM WAREHOUSE DISTRIBUTION ASSOCIATE Gender Identity Female 06/13/2021 9:49 AM WAREHOUSE DISTRIBUTION ASSOCIATE Sexual Orientation Not on file Last Filed [...] 7:41 AM CDT Height 162.6 cm (5' 4) 03/31/2021 7:41 AM CDT Body Mass Index [...] VACCINE (3 - season) 2024 08/25/2020, 07/30/2020 DEPRESSION SCREENING 06/04/2024 INFLUENZA VACCINE (#1) 2025 0, 02/14/2019, 02/13/2019, Additional history exists Respiratory Syncytial Virus (RSV) Vaccine Pt: or [...] complete this topic MENINGOCOCCAL (Group B) VACCINE SHARED DECISION-MAKING Aged Out No longer eligible based on patient's age to complete this topic MENINGOCOCCAL GROUPS A/C/Y/W VACCINE Aged Out No longer eligible based on patient's age to complete this topic Medical Devices Implanted Type Area Anesthetist Device Identifier Shelf Expiration Date Model / Serial / Lot Liner Actb Mxrm +3mm 23 36mm E-Poly Hip Implanted:Qty: 1 on 02/11/2019 by Emmanuel Mcdaniels IV, MD at [facility] Left: Hip [employer] 07/13/2023 [id number] / / [id number] Shell Actb 52mm Hip Lmt Hl Rnglc+ Implanted:Qty: 1 on 02/11/2019 by Emmanuel Mcdaniels IV, MD at [facility] Left: Hip [employer] 10/28/2027 [id number] / / [id number] Stem Offset Uncemented 4 Taper Implanted:Qty: 1 on 02/11/2019 by Emmanuel Mcdaniels IV, MD at [facility] Left: Hip 09/02/2023 [id number] / / [id number] Ceramic Femoral Head Implanted:Qty: 1 on 02/11/2019 by Emmanuel Mcdaniels IV, MD at [facility] Left: Hip 10/01/2028 [id number] / / [id number] Ursula Stem Implanted:Qty: 1 on 03/31/2021 by Emmanuel Mcdaniels IV, MD at [facility] Right: Hip 08/03/2027 [id number] / / [id number] Acetabular Shell Implanted:Qty: 1 on 03/31/2021 by Emmanuel Mcdaniels IV, MD at [facility] Right: Hip 09/20/2030 [id number] / / [id number] Linr Actb 45d 7mm Ofst Ii 52mm 36mm Implanted:Qty: 1 on 03/31/2021 by Emmanuel Mcdaniels IV, MD at [facility] Right: Hip [employer] 08/03/2025 [id number] / / [id number] Bone Screw Implanted:Qty: 1 on 03/31/2021 by Emmanuel Mcdaniels IV, MD at [facility] Right: Hip 01/21/2031 / / [id number] Head Fem +0mm 12/14 Tpr 36mm Hip Oxnm Implanted:Qty: 1 on 03/31/2021 by Emmanuel Mcdaniels IV, MD at [facility] Right: Hip [employer] 01/29/2031 [id number] / / [id number] Explanted Type Area Anesthetist Device Identifier Shelf Expiration Date Model / Serial / Lot Pin Hlf 255mm 5mm Jtx Lng Orth Ss 45mm Explanted:Qty: 1 on 03/31/2021 by Emmanuel Mcdaniels IV, MD at [facility] Right: Hip [employer] [id number] / / Procedures Procedure Name Priority Date/Time [...] - 8.3 gm/dL 01/17/2019 10:59 AM CDT [facility] Albumin 4.2 3.2 - 4.6 gm/dL [...] CDT 01/17/2019 10:30 AM CDT Shirin Canales SAP PP CONSULTANT-PETROL TANKER DRIVER LAB - CHEMISTRY OR DERABLES Final Result Performing Organization Address City/State/[facility] Co de Phone Number [facility] [address] [place], [place] [phone] from Last 3 Months or Most Recently Relevant to Health Maintenance [place] [address] MEDICARE AARP Advance Directives * Full Code (Latest Code [...] 2:36 PM 04/16/2011 11:38 PM Care Teams Biometric Screener Relationship Specialty Start Date End Date Pancho Hatfield MD Orthopedic Surgery 05/03/11 [place] [id number] [address] [address] Orthopedic Surgery 01/06/19
--- OUTSIDE RECORDS SUMMARY | 2025-01-15 15:32 | XMS_ITS | Continuity of Care Document ---
Author Organization [facility] Address [address] [place] [address] [address] [place] [address] Phone Care Team Providers Care Creeler Name Role Phone Brett Strauss Unavailable Unavailable Advance Directives Directive Yes / No Effective Date File Name No Information Encounters Encounter Description Practice Location Reason(s) For Visit Diagnoses Date Provider Providers Copied on Encounter [facility], [id number] [place] [address] [address], [place], [place], [id number], [place] tel:[phone] [facility] No Information [address]. [address] [facility] [address] , [address], [place], [address], [place]. tel:[phone] Family History Family Member Type Diagnosis Age [...]
== END 2025-01-15 15:29 | disposition home or self-care (01) ==
LOC: ANHIMG 15:29
PROVIDERS: PCP Internal Medicine; Visit Provider Internal Medicine
DX: Z12.31 Encounter for screening mammogram for malignant neoplasm of breast (principal)
CPT/HCPCS: 77063; 77067

== ENCOUNTER 2025-02-06 10:18 | Outpatient (CLI) | payer MEDICARE, SELFPAY ==
--- OUTSIDE RECORDS SUMMARY | 2006-01-29 10:15 | XMS_ITS | Continuity of Care Document ---
Author Organization [facility] Address [address] [place] [address] [address] [place] [address] Phone Care Team Providers Care Screen Stretcher Name Role Phone Brett Strauss Unavailable Unavailable Advance Directives Directive Yes / No Effective Date File Name No Information Encounters Encounter Description Practice Location Reason(s) For Visit Diagnoses Date Provider Providers Copied on Encounter [facility], [id number] [place] [address] [address], [place], [place], [id number], [place] tel:[phone] SEC [facility] [place] No Information 8[address] John[address] Tavoward. [address] [facility] [place] , [address], [place], [address], [place]. tel:[phone] Family History Family Member Type Diagnosis Age At Onset No Information Payers Payer name Insurance type Covered democrat ID Authoriza tion(s) No Information Social History Type Description Quantity Date Captured Comments Sex Female Smoking Status No Information Chief Complaint And Reason For Visit No Information Reason For Referral Reason For Referral No Information History Of Present Illness Encounter Date Complaint History Of Prese nt Illness No Information Functional Status Date Functional Assessmen t No Information Instructions Date Instruction Additional Infor mation No Information Assessments Type Assessment Date No Information Patient Care Teams Name Effective Dates (start - stop) Status Members No Information
--- NOTE | ~2025-02-06 | DEXA_ITS ---
Bone Density Report Name: HAMIDA CHRISTIE Age: 69 Sex: Female Ethnicity: White Date of : 1955 Indication: postmenopausal; screening for osteoporosis; height loss; Referring Provider: PILY, OMAR Study: Bone densitometry was performed. Exam Date: February 06, 2025 Accession number: [id number] Bone Density: Region BMD T-score Z-score Classification AP Spine(L1-L4) 1.057 0.1 2.3 Normal World Health Organization criteria for BMD impression classify patients as: Normal (T-score at or above -1.0), Osteopenia (T-score between -1.0 and -2.5), or Osteoporosis (T-score at or below -2.5). Clinical Information Provided by Patient: Has used the following medications: Vitamin D Patient maximum height was 64 Menopause Age: 52 Drinks caffeinated beverages Onset of menses at age 9 Number of children 3 Impression: The patient has normal bone mass. Discussion: LOW RISK OF FRACTURE; BONE DENSITY IS WELL ABOVE THE MINIMUM DESIRABLE LEVEL AND ABOVE AVERAGE FOR AGE AND SEX AT ALL SKELETAL SITES TESTED. This person's bone density is above expected limits for age and sex. This is rarely clinically significant, but should be pursued if there are significant musculoskeletal complaints. The patient should follow a healthful lifestyle (good nutrition with adequate calcium and vitamin D, and appropriate weight-bearing exercise). Follow-Up: Consider repeating this study in 5 years or sooner if there is some new clinical indication. Reported by: BARON on 02/06/2025 10:52:00 AM. Reviewed, dictated and finalized at location A.
--- OUTSIDE RECORDS SUMMARY | 2025-02-06 10:38 | XMS_ITS | Encounter Summary ---
Author Organization [facility] Healthcare Address [address] [place] [address] Care Team Providers Care Business Center Representative Name Role Phone Lyudmila Shaw MD Primary Care Provide r Yrn Bashir MD Unavailable [phone] Sherly De Jesus MD Unavailable [phone] Encounter Details Date Type Department Care Team (Late st Contact Info) Description 07/20/2020 Telephone [facility] - Interventional Radiology [address] [place] [address] Geena Hernadez RN Social History [...] and Family Not on file 11/12/2019 Attends [employer] Services Not on file 11/11 Active Member [...] file Legal Sex Female 3:46 AM RN DOCUMENTATION Gender Identity Female 09/04/2020 8:26 AM CDT Sexual Orientation Not on file documented as of this encounter Plan of Treatment Not on file documented as of this encounter Visit Diagnoses Not on filedocumented in this encounter Care Teams Business Center Representative Relationship Specialty Start Date End Date Lyudmila Shaw MD [address] [facility] [address] [place] [address] PCP - General 06/17/18 Yrn Bashir MD [address] [facility] [address] [place] [address] Consulting Physician Gastroenterology 04/15/20 Sherly De Jesus MD [address] [place] [address] Consulting Physician Urology 04/15/20 documented as of this encounter
--- OUTSIDE RECORDS SUMMARY | 2025-02-06 10:38 | XMS_ITS | Encounter Summary ---
Author Organization [facility] Healthcare Address [address] [place] [address] Care Team Providers Care Customer Service Correspondence Clerk Name Role Phone Lyudmila Shaw MD Primary Care Provide r Yrn Bashir MD Unavailable [phone] Sherly De Jesus MD Unavailable [phone] Encounter Details Date Type Department Care Team (Late st Contact Info) Description 02/09/2021 Telephone [facility] - Imaging [address] [place] [address] Transcribed Order, Provider Social History [...] and Family Not on file 11/12/2019 Attends Church Services Not on file 11/11 Active Member [...] on file Legal Sex Female 3:46 AM DISH MACHINE OPERATOR Gender Identity Female 09/04/2020 8:26 AM CDT Sexual Orientation Not on file documented as of this encounter Plan of Treatment Not on file documented as of this encounter Visit Diagnoses Not on filedocumented in this encounter Care Teams Customer Service Correspondence Clerk Relationship Specialty Start Date End Date Lyudmila Shaw MD [address] [address] PCP - General 06/17/18 Yrn Bashir MD [address] [address] Consulting Physician Gastroenterology 04/15/20 Sherly De Jesus MD [address] [address] Consulting Physician Urology 04/15/20 documented as of this encounter
--- OUTSIDE RECORDS SUMMARY | 2025-02-06 10:38 | XMS_ITS | Encounter Summary ---
Author Organization [facility] Healthcare Address [address] [place] [address] Care Team Providers Care Cook Ship Name Role Phone Lyudmila Shaw MD Primary Care Provide r Yrn Bashir MD Unavailable [phone] Sherly De Jesus MD Unavailable [phone] Encounter Details Date Type Department Care Team (Late st Contact Info) Description 07/19/2020 Telephone [facility] - Interventional Radiology [address] [place] [address] Geena Hernadez RN Social History [...] and Family Not on file 11/12/2019 Attends [employer] Services Not on file 11/11 Active Member [...] on file Legal Sex Female 3:46 AM MULTIPLE SPINDLE SCREW MACHINE OPERATOR Gender Identity Female 09/04/2020 8:26 AM CDT Sexual Orientation Not on file documented as of this encounter Plan of Treatment Not on file documented as of this encounter Visit Diagnoses Not on filedocumented in this encounter Care Teams Cook Ship Relationship Specialty Start Date End Date Lyudmila Shaw MD [address] [facility] [address] [place] [address] PCP - General 06/17/18 Yrn Bashir MD [address] [facility] [address] [place] [address] Consulting Physician Gastroenterology 04/15/20 Sherly De Jesus MD [address] [place] [address] Consulting Physician Urology 04/15/20 documented as of this encounter
--- OUTSIDE RECORDS SUMMARY | 2025-02-06 10:38 | XMS_ITS | Clinical Summary ---
Author Organization [facility] Address [address] [place] [address] Care Team Providers Care Market Research Associate Name Role Phone Pancho Hatfield MD Unavailable [phone] Enedelia LAMBERT MD, Frank Unavailable [phone] Source Comments [facility],non-owned Affiliates and Associated Physician Practices is amultiple site organization consisting of ambulatory clinics and hospital sitesin [place], [place], [place] and [place]. This disclosure is being madepursuant to the Care Everywhere program and may not contain all information available regarding this patient. Last updated 18.[facility] Allergies Active Allergy Reactions Criticality Noted [...] Sex Assigned at Female 06/13/2021 9:49 AM WATER RIGHTS SPECIALIST Legal Sex Female 12:12 PM WATER RIGHTS SPECIALIST Gender Identity Female 06/13/2021 9:49 AM WATER RIGHTS SPECIALIST Sexual Orientation Not on file Last Filed [...] SCREENING FOR DIABETES 01/17/2022 9, 09/20/2011, 03/15/2011 DEPRESSION SCREENING 06/04/2024 COVID-19 VACCINE (3 - season) 2025 08/25/2020, 07/30/2020 INFLUENZA VACCINE (#1) 2025 0, 02/14/2019, 02/13/2019, [...] this topic Medical Devices Implanted Type Area Addressing Machine Operator Device Identifier Shelf Expiration Date Model / Serial / Lot Liner Actb Mxrm +3mm 23 36mm E-Poly Hip Implanted:Qty: 1 on 02/11/2019 by Emmanuel Mcdaniels IV, MD at [facility] Left: Hip [employer] 07/13/2023 [id number] / / [id number] Shell Actb 52mm Hip Lmt Hl Rnglc+ Implanted:Qty: 1 on 02/11/2019 by Emmanuel Mcdaniels IV, MD at [facility] Left: Hip [employer] 10/28/2027 [id number] / / [id number] Stem Offset Uncemented 4 Taper Implanted:Qty: 1 on 02/11/2019 by Emmanuel Mcdaniels IV, MD at [facility] Left: Hip 09/02/2023 [id number] / / [id number] Ceramic Femoral Head Implanted:Qty: 1 on 02/11/2019 by Emmanuel Mcdaneils IV, MD at [facility] Left: Hip 10/01/2028 [id number] / / [id number] Ursula Stem Implanted:Qty: 1 on 03/31/2021 by Emmanuel Mcdaniels IV, MD at [facility] Right: Hip 08/03/2027 [id number] / / [id number] Acetabular Shell Implanted:Qty: 1 on 03/31/2021 by Emmanuel Mcdaniels IV, MD at [facility] Right: Hip 09/20/2030 [id number] / / [id number] Linr Actb 45d 7mm Ofst Ii 52mm 36mm Implanted:Qty: 1 on 03/31/2021 by Emmanuel Mcdaniels IV, MD at [facility] Right: Hip [employer] 08/03/2025 [id number] / / [id number] Bone Screw Implanted:Qty: 1 on 03/31/2021 by Emmanuel Mcdaniels IV, MD at [facility] Right: Hip 01/21/2031 / / [id number] Head Fem +0mm 12/14 Tpr 36mm Hip Oxnm Implanted:Qty: 1 on 03/31/2021 by Emmanuel Mcdaniels IV, MD at [facility] Right: Hip [employer] 01/29/2031 [id number] / / [id number] Explanted Type Area Addressing Machine Operator Device Identifier Shelf Expiration Date Model / Serial / Lot Pin Hlf 255mm 5mm Jtx Lng Orth Ss 45mm Explanted:Qty: 1 on 03/31/2021 by Emmanuel Mcdaniels IV, MD at [facility] Right: Hip [employer] [id number] / / Procedures Procedure Name Priority Date/Time [...] CDT 01/17/2019 10:30 AM CDT Shirin Canales CONTAINER WASHER-SUPERVISOR [facility] - CHEMISTRY OR DERABLES Final Result Performing Organization Address City/State/[facility] Co de Phone Number [facility] [address] [place], [place] [id number] from Last 3 Months or Most Recently Relevant to Health Maintenance Insurance MEDICARE MEDICARE AARP Advance Directives * Full Code [...] 2:36 PM 04/16/2011 11:38 PM Care Teams Market Research Associate Relationship Specialty Start Date End Date Pancho Hatfield MD Orthopedic Surgery 05/03/11 [place] [address] [address] [address] Orthopedic Surgery 01/06/19
--- OUTSIDE RECORDS SUMMARY | 2025-02-06 10:38 | XMS_ITS | Encounter Summary ---
Author Organization [facility] Address [address] [place] [address] Care Team Providers Care Windows Server Support Technician Name Role Phone Lyudmila Shaw MD Primary Care Provide r Yrn Bashir MD Unavailable [phone] Sherly De Jesus MD Unavailable [phone] Encounter Details Date Type Department Care Team (Late st Contact Info) Description 06/09/2020 Telephone [facility] - Imaging [address] [place] [address] Transcribed Order, Provider Social History [...] and Family Not on file 11/12/2019 Attends Jehovah'S Witness Services Not on file 11/11 Active Member [...] on file Legal Sex Female 3:46 AM RUBBER PRINTING MACHINE OPERATOR Gender Identity Female 09/04/2020 8:26 AM CDT Sexual Orientation Not on file documented as of this encounter Plan of Treatment Not on file documented as of this encounter Visit Diagnoses Not on filedocumented in this encounter Care Teams Windows Server Support Technician Relationship Specialty Start Date End Date Lyudmila Shaw MD [address] [facility] [address] [place] [address] PCP - General 06/17/18 Yrn Bashir MD [address] [facility] [address] [place] [address] Consulting Physician Gastroenterology 04/15/20 Sherly De Jesus MD [address] [facility] [address] [place] [address] Consulting Physician Urology 04/15/20 documented as of this encounter
--- OUTSIDE RECORDS SUMMARY | 2025-02-06 10:38 | XMS_ITS | Encounter Summary ---
Author Organization [facility] Address [address] [place] [address] Phone Care Team Providers Care Cobol Programmer Name Role Phone Roxanne Somers NP Primary Care Provider [phone] Lyudmila Shaw MD Primary Care Provide r Yrn Bashir MD Unavailable [phone] Sherly De Jesus MD Unavailable [phone] Encounter Details Date Type Department Care Team (Latest Contact Info) Description 05/11/2017 Orders Only [facility] CONVERSION Scanning, Provider Social History Tobacco Use Types Packs/Day Years Used Date Smoking Tobacco: Never Comments Unknown Sex and Gender Information Value Date Recorded Sex Assigned at Not on file Legal Sex Female 3:46 AM PIT INSPECTOR Gender Identity Female 09/04/2020 8:26 AM CDT Sexual Orientation Not on file documented as of this encounter Plan of Treatment Not on file documented as of this encounter Procedures Procedure Name Priority Date/Time Associated Diagnosis Comments OBSTETRIC/GYNECOLOGY ULTRASONOGRAPHY REPORT 05/11/2017 1:30 PM PIT INSPECTOR documented in this encounter Results * OBSTETRIC/GYNECOLOGY ULTRASONOGRAPHY REPORT (05/11/2017 1:30 PM PIT INSPECTOR) Anatomical Region Laterality Modality Ultrasound us Provider Scanning IMG OB US PROCEDURES Final Res ult documented in this encounter Visit Diagnoses Not on filedocumented in this encounter Care Teams Cobol Programmer Relationship Specialty Start Date End Date Roxanne Somers NP PCP - General 08/18/16 06/16/18 Lyudmila Shaw MD [address] [facility] [address] [place] [address] PCP - General 06/17/18 Yrn Bashir MD [address] [id number] Consulting Physician Gastroenterology 04/15/20 Sherly De Jesus MD [address] [id number] Consulting Physician Urology 04/15/20 documented as of this encounter
--- OUTSIDE RECORDS SUMMARY | 2025-02-06 10:38 | XMS_ITS | Encounter Summary ---
Author Organization 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 Gender Identity Female 09/04/2020 8:26 AM CDT Sexual Orientation Not on file documented as of this encounter Plan of Treatment Not on file documented as of this encounter Visit Diagnoses Not on filedocumented in this encounter Care Teams Rigging And Controls Aircraft Mechanic Relationship Specialty Start Date End Date Lyudmila Shaw MD [address] [address] PCP - General 06/17/18 Yrn Bashir MD [address] [address] Consulting Physician Gastroenterology 04/15/20 Sherly De Jesus MD [address] [address] Consulting Physician Urology 04/15/20 documented as of this encounter
--- OUTSIDE RECORDS SUMMARY | 2025-02-06 10:38 | XMS_ITS | Patient Health Record ---
Author Organization [facility] Address [address] [place] [address] Care Team Providers Care Hammer Driver Name Role Phone Colin PIZARRO, Randi Primary Care Provider Un available FLORENCE PIZARRO, NIKI Unavailable [phone] Reason For Referral No Information Plan Of Treatment Pending Test Test Name Order Date CT ABDOMEN W CONTRAST 06/01/2020 Endoscopic Retrograde Cholangiopancreato graphy (ERCP) 06/11/2020 Endoscopic Retrograde Cholangiopancreato graphy (ERCP) 04/20/2020 Endoscopic Retrograde Cholangiopancreato graphy (ERCP) 09/03/2020 MRCP 08/13/2020 Insurance Providers Payer Name Payer Address Payer Phone Subscriber Number Group Number Insured Name Patient Relationship to Insured Coverage Start Date Coverage End Date Medicare-M O Medicare [address] [address] [place], [place] [id number] Tiara Heaton Self - patient is the insured [facility] Medicare Supplement [address] [facility] [place], [place] [id number] Tiara Heaton Self - patient is the insured
--- OUTSIDE RECORDS SUMMARY | 2025-02-06 10:38 | XMS_ITS | Encounter Summary ---
Author Organization [facility] Address [address] [place] [address] Care Team Providers Care Artist Mannequin Coloring Name Role Phone Lyudmila Shaw MD Primary Care Provide r Yrn Bashir MD Unavailable [phone] Sherly De Jesus MD Unavailable [phone] Encounter Details Date Type Department Care Team (Late st Contact Info) Description 04/12/2020 Telephone [facility] - Interventional Radiology [address] [place] [address] Ernestina Moran RN Social History [...] and Family Not on file 11/12/2019 Attends Mandaen Services Not on file 11/11 Active Member [...] on file 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 Gender Identity Female 09/04/2020 8:26 AM CDT Sexual Orientation Not on file documented as of this encounter Plan of Treatment Not on file documented as of this encounter Visit Diagnoses Not on filedocumented in this encounter Care Teams Artist Mannequin Coloring Relationship Specialty Start Date End Date Lyudmila Shaw MD [address] [facility] [address] [place] [address] PCP - General 06/17/18 Yrn Bashir MD [address] [facility] [address] [place] [address] Consulting Physician Gastroenterology 04/15/20 Sherly De Jesus MD [address] [place] [address] Consulting Physician Urology 04/15/20 documented as of this encounter
--- OUTSIDE RECORDS SUMMARY | 2025-02-06 10:39 | XMS_ITS | Encounter Summary ---
Author Organization [facility] Address [address] [facility] [place] [address] Care Team Providers Care Retail Pos Specialist Name Role Phone Pancho Hatfield MD Unavailable Enedelia LAMBERT MD, Frank Unavailable [phone] Encounter Details Date Type Department Care Team (Late st Contact Info) Description 02/22/2023 Lab Requisition [facility] - DermPath Lab [address] [facility] [place] [id number] Casey Forrester MD [address] [place] [address] Social History Tobacco Use Types Packs/Day Years Used Date Smoking Tobacco: Never Smokeless Tobacco: Never Alcohol Use Standard Drinks/Week Comments No 0 (1 standard drink = 0.6 oz pur e alcohol) Comments No Sex and Gender Information Value Date Recorded Sex Assigned at Female 06/13/2021 9:49 AM STRIP FEEDER Legal Sex Female 12:12 PM STRIP FEEDER Gender Identity Female 06/13/2021 9:49 AM STRIP FEEDER Sexual Orientation Not on file documented as [...] AM CDT) Case Report Dermatopathology Report Case: [id number] Authorizing Provider: Casey Forrester MD Collected: 02/21/2023 [...] characteristic determined by the Dermatopathology Laboratory at [facility], directed by Dr. Kathryn Burton. These tests need not be, and therefore are not, approved by the [place] Food and Drug Administration. The tests are used for clinical purposes. Billing Codes Specimen Charges Stain Charges 95734 1 3 1:45 PM CDT DER[facility]OPATH[facility]Y LAB[facility] Embedded Images 3 1:45 PM CDT DERMATOPATHOLOGY LABORATORY Pathology/Cytolog y TISSUE SPECIMEN FROM SKIN / Unknown 02/21/2023 02/22/2023 1:13 PM CDT Casey Forrester MD LAB - PATHOLOGY/CYTOLOGY ORD ERABLES Final Result DERMATOPATHOLOGY LABORATORY [facility] - Department of Dermatology [facility] Medicine [address] [place] [address], [address] [phone] documented in this encounter Visit Diagnoses Not on filedocumented in this encounter Care Teams Retail Pos Specialist Relationship Specialty Start Date End Date Pancho Hatfield MD Orthopedic Surgery 05/03/11 [place] [address] [address] [address] Orthopedic Surgery 01/06/19 documented as of this encounter
--- OUTSIDE RECORDS SUMMARY | 2025-02-06 10:39 | XMS_ITS | Clinical Summary ---
Author Organization [facility] Address [address] [place] [address] Care Team Providers Care Toolmaker Helper Name Role Phone Lyudmila Shaw MD Primary Care Provide r Yrn Bashir MD Unavailable Sherly De Jesus MD Unavailable Allergies Active [...] (04/13/2020): Added automatically from request for surgery [id number] Resolved Problems Problem Noted Date Diagnosed Date Resolved Date Uterine prolapse 12/11/2019 04/05/2020 Generalized abdominal pain 11/12/2019 1 06/05/2019 Immunizations Immunization Administration Dates Next Due Influenza, Quadrivalent, Hig h Dose, Preservative Free, Intrr 04/13/2020 Surgical History Surgery Date Site/Laterality Comments MD DILATION & CURETTAGE DX&/THER NONOBSTETRIC MD ARTHROPLASTY KNEE TIBIAL PLATEAU Knee Replacement - (Added by TW Conv) MD UNLISTED PROCEDURE DENTOALVEOLAR STRUCTURES Oral Surgery Tooth Extraction - (Added by TW Conv) MD HYSTEROSCOPY ENDOMETRIAL ABLATION SECTION TOTAL HIP ARTHROPLASTY [...] and Family Not on file 11/12/2019 Attends [employer] Not on file 11/11 Active Member [...] on file Medical Devices Implanted Type Area Residential Designer Device Identifier Shelf Expiration Date Model / Serial / Lot Left Knee Replacement Left: Knee Left Hip Replacement Left: Hip Right Knee Replacement Right: Knee Kohort [id number] Amplatz 8.5fr 26cm 6 Sideport Introducer Catheter String - [id number] Implanted:Qty: 1 on 08/11/2020 at [facility] [employer] [id number] / / Explanted Type Area Residential Designer Device Identifier Shelf Expiration Date Model / Serial / Lot [employer] 6341 Tran Flexi-Stent 4fr 2cm Small Pigtail Straight Flexible .025 - [id number] Explanted:Qty: 1 on 04/14/2020 by Bossman Pickering MD at [facility] N/A: Pancreas [employer] 12/01/2024 [id number] / / [id number] [employer] [id number] Cotton-Farias 7fr 10cm Taper Tip Guidewire Proximal Distal Flap - [id number] Implanted:Qty: 1 on 04/14/2020 by Bossman Pickering MD at [facility] Explanted:Qty: 1 on 05/10/2020 by Yrn aBshir MD at [facility] N/A: Bile Duct [employer] 09/22/2020 [id number] / / [id number] [employer] Scientific Oral 400-171 C-Flex 6fr 70cm Taper Tip 1 Lumen Injection Hub Radiopaque Latex Free - [id number] Explanted:Qty: 1 on 08/10/2020 at [facility] [employer] [id number] / / Description:Item documented as one time supply on supply screen by RN. Item listed in EPIC under implant screen, so solar sales associate entered on implant screen as implanted/explanted for charging, and left supply screen items as non-chargeable. Insurance MEDICARE Member Subscriber Plan / Payer (Ef fective 2018-Present) Name:Hamida Christie Member ID:[id number] Relation to Subscriber:Self Name:Hamida Christie Subscriber ID:[id number] Payer ID:[id number] Group ID:Not on file Type:MEDICARE TRADITIONAL Address: [address] [address] [employer]AR MEDICARE Member Subscriber Plan / Payer ( fective 2018-) Name:Hamida Christie Member ID:[id number] Relation to Subscriber:Self Name:Sudarshan Hamida Marie Subscriber ID:[id number] Payer ID:[id number] Group ID:Not on file Type:MEDICARE TRADITIONAL Address: [place] [id number] [facility] MEDICARE AARP Advance Directives For more information, please contact: [phone] * Full Code (Latest Code Status on File) Date Activated Date Inactivated Comments 09/27/2020 10:03 AM 09/27/2020 5:23 PM * Full Code Date Activated Date Inactivated Comments 08/11/2020 4:39 PM 08/12/2020 2:22 PM * Full Code Date Activated Date Inactivated Comments 08/10/2020 4:33 PM 08/11/2020 4:39 PM * Full Code Date Activated Date Inactivated Comments 04/13/2020 1:26 PM 04/15/2020 10:09 PM Care Teams Toolmaker Helper Relationship Specialty Start Date End Date Lyudmila Shaw MD [address] [facility] [address] [place] [address] PCP - General 06/17/18 Yrn Bashir MD [address] [facility] [address] [place] [address] Consulting Physician Gastroenterology 04/15/20 Sherly De Jesus MD [address] [facility] [address] [place] [address] Consulting Physician Urology 04/15/20
== END 2025-02-06 10:19 | disposition home or self-care (01) ==
LOC: ANHFOHIMG 10:19
PROVIDERS: PCP Internal Medicine; Visit Provider Internal Medicine
DX: Z78.0 Asymptomatic menopausal state (principal)
CPT/HCPCS: 77080